=== PATIENT | male | born 1960 | race Caucasian/White ===

== ENCOUNTER 2016-08-08 10:43 | Emergency (ER) | payer OTHER ==
[~2016-08-08 10:43] MED LIST: ALLOPURINOL100 MG PO; ASPIRIN ADULT L81 MG PO; ATACAND8 MG PO; CARDIZEM C1 PO; CEFTIN500 MG PO; COUMADIN5 MG PO; FUROSEMIDE40 MG PO; LANTUS SOL100 UNITS/ SC; LASIX20 MG PO; LIPITOR10 MG PO; LOPRESSOR50 MG PO; LYRICA25 MG PO; MICRO-K 10 EQU10 MEQ PO; MIRAPEX0.25 MG PO; NORVASC2.5 MG PO; NOVOLOG PE100 UNITS/; NOVOLOG PE100 UNITS/ SC; PREDNISONE20 MG PO; VICODIN EQUIVAL1 TAB PO
--- NOTE | 2016-08-08 13:51 | ED ORDER SUMMARY ---
..... Patient: CHRIS HAMLIN OrderSheet [facility] VisitID: [id number] [place] [address] 55y, M Registration Date/Time: 08/08/2016 ORDER SHEET Weight: 99.7 kg (stated) Allergies: No Known Drug Allergy GENERAL ORDERS: CBC w Diff Urgent (12:11 08/08/2016 HBivens A.R.N.P.) (Ack 12:12 NHouse ER Tech1) (12:13 NHouse ER Tech1) BMP Urgent (12:11 08/08/2016 HBivens A.R.N.P.) (Ack 12:12 NHouse ER Tech1) (12:13 NHouse ER Tech1) Lactate, Serum Urgent (12:11 08/08/2016 HBivens A.R.N.P.) (Ack 12:12 NHouse ER Tech1) (12:41 SRoberts R.N.) MEDICATION ORDERS: IV FLUIDS: Toradol IV 30 mg (NOW) (12:10 08/08/2016 HBivens A.R.N.P.) (Ack 12:16 SRoberts R.N.) (12:39 SRoberts R.N.) Ceftriaxone IV 1 gm/50mL (NOW) (12:10 08/08/2016 HBivens A.R.N.P.) (Ack 12:16 SRoberts R.N.) (12:41 SRoberts R.N.) IV Saline Lock (12:08/08/2016 HBivens A.R.N.P.) (12:16 SRoberts R.N.) ORDER SHEET NOTES: [Electronically signed by Nesha Miller R.N. (14:45 08/08/2016)] [Electronically signed by Kanwal Kebede A.R.N.P. (14:51 08/08/2016)] [Electronically locked/signed by Nesha Miller R.N. (14:45 08/08/2016)]
--- NOTE | 2016-08-08 13:51 | ED CLINICAL REPORT ---
Clinical Report - Physicians/Mid Levels [facility] [address] [place] [address] 08/08/2016 10:43 Patient: CHRIS HAMLIN Time Seen: 12:04; initial patient contact, initial documentation, patient care assumed. Arrived- By private vehicle. Historian- patient. HISTORY OF PRESENT ILLNESS Chief Complaint: LESION. This started about 4 weeks ago or longer and is still present. Not itchy. It is described as painful and burning. It has been located on the right lower extremity and left lower extremity. (missed his wound care appt last week, nothing new going on, admits to not washing the wounds or doing any care himself, left bandages on for more than 2-3 days, is scheduled for leg angiogram this week, needs something for pain). Similar symptoms previously: Chronically, worse. Recent medical care: Not recently seen/assessed. REVIEW OF SYSTEMS No fever, difficulty breathing, chest pain, abdominal pain or diarrhea. No vomiting. All systems otherwise negative, except as recorded above. PAST HISTORY See nurses notes. PROBLEMS: Pleural Effusion. Congestive Heart Failure. COPD - Chronic Obstructive Pulmonary Disease. Anxiety Reaction. Atrial Fibrillation. Bursitis. Rheumatoid arteritis. Neuropathy. Medication Refill. Lifestyle / Substance Problems. Dental Caries. Dental Abscess. Immunizations. Gout. Hypertension. Diabetes Mellitus. --10:59 Nesha Miller RKathy. ADDITIONAL SURGERIES: Cataract Surgery. Right ankle surgery . --10:59 Nesha Miller RKathy. SOCIAL HISTORY Heavy tobacco smoker. Occasional alcohol use. History of drug use hx of substance abuse, pt laughed when I asked about drugs or if he shot up. No recent travel. Is a local resident. FAMILY HISTORY Negative. ADDITIONAL NOTES The nursing notes have been reviewed with agreement regarding the chief complaint, HPI, ROS, PMH and patient medications and allergies. PHYSICAL EXAM Vital Signs: 08/08/2016 10:53 BP: 138/103. HR: 98. RR: 20. O2 saturation: 98%. Temp: 97.8 F. Pain level now: 05/17. Have been reviewed as abnormal and appear to be correct. Hypertensive. Heart rate normal. Respiratory rate normal. Temperature normal. Oxygen saturation normal. Appearance: Alert. Oriented X3. No acute distress. Neck: Neck supple. CVS: Normal heart rate and rhythm. Heart sounds normal. Respiratory: No respiratory distress. Breath sounds normal. Chest nontender. Abdomen: Nontender. No organomegaly. Skin: Skin warm and dry. Abnormal skin color. No rash. Normal skin turgor. (open weeping wounds to B lower extremities, with erythema, swelling). Extremities: Normal external inspection. Extremities nontender. Neuro: Oriented X 3. No motor deficit. No sensory deficit. LABS, X-RAYS, AND EKG Laboratory Tests: CBC w Diff: (HUEY: 08/08/2016 11:25) ( [facility] 08/08/2016 13:29) Final results Test Result Flag Units (Reference) WHITE BLOOD COUNT 10.6 K/uL (4.5-11.5) RED BLOOD COUNT 6.43 *H M/uL (4.50-5.90) HEMOGLOBIN 16.0 gm/dL (13.5-17.5) HEMATOCRIT 52.2 % (41.0-53.0) MEAN CELL VOLUME 81 fL (80-100) MEAN CORPUSCULAR HGB 25 L pg (26-34) MEAN CORPUSCULAR HGB CONC 31 g/dL (31-37) RED CELL DISTRIBUTION WIDTH 18.2 H % (11.6-14.8) PLATELET COUNT 266 K/uL (150-400) NEUTROPHIL % 66.8 % (50-75) LYMPH % 21.5 L % (25-40) MONO % 10.8 % (3-14) EOSINOPHIL % 0.6 % (0-4) BASOPHIL % 0.3 % (0-2) Lactate, Serum: (HUEY: 08/08/2016 12:26) ( MsgRcvd 08/08/2016 12:52) Final results Test Result Flag Units (Reference) LACTIC ACID 1.8 mmol/L (0.4-2.0) BMP: (HUEY: 08/08/2016 11:25) ( MsgRcvd 08/08/2016 12:30) Final results Test Result Flag Units (Reference) GLUCOSE 126 H mg/dL (70-110) BUN 12 mg/dL (7-18) CREATININE 1.0 mg/dL (0.6-1.3) Estimated GFR >60 mL/min Estimated GFR- >60 mL/min Note: Persistent reduction over 3 months in eGFR<60 mL/min/1.73 m2 defines CKD. Patients with eGFR values>=60 mL/min/1.73 m2 may also have CKD if evidence ofpersistent proteinuria. Additional information may be foundat www.[email or web address].org. SODIUM 138 mmol/L (136-145) POTASSIUM 4.2 mmol/L (3.5-5.1) CHLORIDE 100 mmol/L (98-107) CARBON DIOXIDE 28 mmol/L (21-32) CALCIUM 9.6 mg/dL (8.5-10.1) . PROGRESS AND PROCEDURES Course of Care: 1346. pt admitting he has been depressed, tired of the leg issues, it started back around , doesn't want to wait til Thur for angiogram, wants it done today or to cut his leg off. Patient counseled in person regarding the patient's stable condition, test results and diagnosis. 13:46. Differential Diagnosis: Other possible considerations: chronic leg ulcers, sepsis. Above considerations are based on history, physical exam and laboratory data. Differential diagnosis was discussed with patient. Disposition: Discharged home in good and improved condition (13:51). Condition: good and stable. CLINICAL IMPRESSION (B Chronic Leg Ulcers/wounds). INSTRUCTIONS Warnings: GENERAL WARNINGS: Return or contact your physician immediately if your condition worsens or changes unexpectedly, if not improving as expected, or if other problems arise. Specifically return if problem worsens. Prescription Medications: Bactrim DS 800 mg / 160 mg: Take 1 tablet orally every 12 hours for 7 days. Dispense fourteen (14). No refills. Substitution is permissible. Follow-up: Follow up with your doctor as scheduled even if well. Summary of care provided to patient. Screening today revealed the patient's blood pressure to be in the hypertensive range. The patient should follow up with a primary care provider for blood pressure management. Understanding of the discharge instructions verbalized by patient. (Electronically signed by Kanwal Kebede A.R.N.P. 08/08/2016 14:51)
--- NOTE | 2016-08-08 13:51 | ED ORDER SUMMARY ---
..... Patient: CHRIS HAMLIN OrderSheet [facility] VisitID: [id number] [place] [address] 55y, M Registration Date/Time: 08/08/2016 ORDER SHEET Weight: 99.7 kg (stated) Allergies: No Known Drug Allergy GENERAL ORDERS: CBC w Diff Urgent (12:11 08/08/2016 HBivens A.R.N.P.) (Ack 12:12 NHouse ER Tech1) (12:13 NHouse ER Tech1) BMP Urgent (12:11 08/08/2016 HBivens A.R.N.P.) (Ack 12:12 NHouse ER Tech1) (12:13 NHouse ER Tech1) Lactate, Serum Urgent (12:11 08/08/2016 HBivens A.R.N.P.) (Ack 12:12 NHouse ER Tech1) (12:41 SRoberts R.N.) MEDICATION ORDERS: IV FLUIDS: Toradol IV 30 mg (NOW) (12:10 08/08/2016 HBivens A.R.N.P.) (Ack 12:16 SRoberts R.N.) (12:39 SRoberts R.N.) Ceftriaxone IV 1 gm/50mL (NOW) (12:10 08/08/2016 HBivens A.R.N.P.) (Ack 12:16 SRoberts R.N.) (12:41 SRoberts R.N.) IV Saline Lock (12:08/08/2016 HBivens A.R.N.P.) (12:16 SRoberts R.N.) ORDER SHEET NOTES: [Electronically signed by Nesha Miller R.N. (14:45 08/08/2016)] [Electronically signed by Kanwal Kebede A.R.N.P. (14:51 08/08/2016)] [Electronically locked/signed by Nesha Miller R.N. (14:45 08/08/2016)]
--- NOTE | 2016-08-08 13:51 | ED NURSING NOTES ---
Clinical Report - Nurses [facility] [address] [place] [address] 08/08/2016 10:43 [id number] Triage time 10:53. Acuity: LEVEL 3. Chief Complaint: RIGHT LOWER EXTREMITY PAIN, SWELLING and REDNESS. Location of symptoms- ("stingy pain in both legs. I'm scheduled for an angiogram). LEFT LOWER EXTREMITY PAIN, SWELLING and REDNESS. Alert. No acute distress. SHAKA COMA SCORE: Shaka Coma Scale: 15- eyes open spontaneously (4); best verbal response- oriented x 4 (5); best motor response- obeys commands (6). --11:03 Nesha Miller R.N. 10:53 08/08/16. BP: 138/103. HR: 98. RR: 20. O2 saturation: 98%. Temp: 97.8 F. Pain level now: 05/17. Additional comments: last pain med yesterday . --11:03 Nesha Miller R.N. Weight: 99.7 kg stated. Height/Length: 72 inches Per Patient. BMI: 29.8. --10:56 Nesha Miller R.N. Medications Amlodipine besylate 10mg . Atorvastatin 20mg tab. Chantix. Diazepam 10mg 1 daily. Hydrocodon 7.5 -325 take 1 tab every 4 hrs as needed. Lantus Subcutaneous 30 units, at bedtime. Lasix Oral 40 mg, 2x a day. Lyrica 100mg 1- three times daily. Metoprolol 50mg 1- twcie daily. --11: Nesha Miller R.N. Medication/allergy information source: the patient. --11:03 Nesha Miller R.N. Allergies No Known Drug Allergy. --11:01 Nesha Miller R.N. History Arrived by EMS. Historian: patient. No injury occurred. This occurred (4 weeks, going to the wound care center. Missed last week. Pain in both lower legs.). Provoking / relieving factors: worsened by movement; relieved by standing, walking, lying down, remaining still, OTC analgesics and Rx meds. The patient has had swelling and redness. Treatment BUSINESS LINE MANAGER: None. PAST MEDICAL HX: Tetanus status: unknown. SOCIAL HX: Smoker- current status unknown. No alcohol use or drug use. FALL RISK ASSESSMENT: Fall risk assessment completed. No fall risk identified. NUTRITIONAL RISK ASSESSMENT: The nutritional risk assessment revealed no deficiencies. FUNCTIONAL ASSESSMENT: Functional assessment: no impairments noted. LEARNING NEEDS ASSESSMENT: The learning needs assessment revealed no barriers. SKIN INTEGRITY ASSESSMENT: Skin integrity risk assessment completed. No skin integrity risk identified. --11:03 Nesha Miller R.N. PROBLEMS: Pleural Effusion. Congestive Heart Failure. COPD - Chronic Obstructive Pulmonary Disease. Anxiety Reaction. Atrial Fibrillation. Bursitis. Rheumatoid arteritis. Neuropathy. Medication Refill. Lifestyle / Substance Problems. Dental Caries. Dental Abscess. Immunizations. Gout. Hypertension. Diabetes Mellitus. --10:59 Nesha Miller R.N. ADDITIONAL SURGERIES: Cataract Surgery. Right ankle surgery . --10:59 Nesha Miller R.N. Interventions ID band on patient. To room. --11:03 Nesha Miller R.N. PHYSICAL ASSESSMENT To room via stretcher. Patient gowned. GENERAL / NEURO / PSYCH: Appears in pain and anxious. EXTREMITIES: Limited ROM present. 3+ pitting edema of the right lower extremity involving the foot, ankle and lower leg; 1+ pitting edema of the left lower extremity involving the foot, ankle and lower leg. Right knee: tenderness and erythema. Right leg: tenderness and erythema. Right ankle: tenderness and erythema. Right foot: tenderness and erythema. Left leg: tenderness and erythema. Left ankle: tenderness and erythema. Left foot: tenderness and erythema. SKIN: Skin is warm and dry. ( Lower legs scally, rt is worse. Rt heel with open sore, DM.). --11:05 Nesha Miller R.N. NURSING PROGRESS NOTES Extremity elevated. Patient gowned. Two patient identifiers checked. Call light placed in reach. Side rails up x 2. Bed placed in lowest position. Brakes of bed on. Patient ready for evaluation. --11:05 Nesha Miller R.N. 11:05 08/08/16. BP: 143/110. HR: 100. RR: 20. O2 saturation: 99%. --11:06 Nesha Miller R.N. ( photos taken of leg wounds.). --12:03 Betty Metzger ER Tech1 11:51 08/08/2016 Site #1 started via IV in the left antecubital space with an 20g angiocath; one attempt. Blood drawn: rainbow set. Labeled in the presence of the patient and sent to the lab. Saline lock flushed. --12:16 Nesha Miller R.N. 12:08 08/08/2016 Toradol IVP 30 mg given over 1 minute(s) via site #1. Allergies verified and confirmed 5 rights. IV patency established. IV site checked: no pain, redness, or swelling. IV flushed thoroughly pre- and post-medication administration. IVP given by RN. --12:39 Nesha Miller R.N. 12:10 08/08/2016 Started 1 gm of Ceftriaxone IVPB in bag #1 50 mL; at 100 mL/hr over 20 minute(s) via site #1; Allergies verified and confirmed 5 rights. IV patency established. IV site checked: no pain, redness, or swelling. IV flushed thoroughly pre- and post-medication administration. Completed per protocol. --12:41 Nesha Miller R.N. 12:41 08/08/2016 Ceftriaxone IVPB Discontinued: bag #1 infused. Total amount infused: 50 mL. IV patency established. IV site checked: no pain, redness, or swelling. IV flushed thoroughly. --12:41 Nesha Miller R.N. ( provided patient with sandwich and apple juice). --13:44 Mila Austin Tech1 ( Patient told he's discharged. He is on the phone calling his brother to come pick him up.). --14:12 Nesha Miller R.N. DISPOSITION / DISCHARGE Condition at departure: improved. No learning barriers present. Discharge instructions provided and reviewed with the patient. Reviewed medication(s) side effects, precautions, dosing and course information. Prescription(s) given to the patient. Patient verbalized understanding. Written instructions provided in Peruvian. The patient was discharged home and accompanied by family. He left the Emergency Department in a wheelchair and via private vehicle. Family member driving. ( Patient stood and transferred from bed to w/c). Medication list reviewed and validated. --14:30 Nesha Miller R.N. 14:17 08/08/16. BP: 133/87. HR: 78. RR: 18. O2 saturation: 97% on room air. Temp: deferred. Pain level now: 05/17. 13:07 08/08/16. BP: 154/75. HR: 89. RR: 20. O2 saturation: 98% on room air. 11:05 08/08/16. BP: 143/110. HR: 100. RR: 20. O2 saturation: 99%. 10:53 08/08/16. BP: 138/103. HR: 98. RR: 20. O2 saturation: 98%. Temp: 97.8 F. Pain level now: 05/17. Additional comments: last pain med yesterday . --14:30 Nesha Miller R.N. Locked/Released at 08/08/2016 14:45 by Nesha Miller R.N.
--- NOTE | 2016-08-08 14:51 | ED DISCHARGE INSTRUCTIONS ---
Patient: CHRIS HAMLIN General Instructions [facility] VisitID: [id number] [place] [address] 55y, M Registration Date/Time: 08/08/2016 (B Chronic Leg Ulcers/wounds). INSTRUCTIONS Warnings: GENERAL WARNINGS: Return or contact your physician immediately if your condition worsens or changes unexpectedly, if not improving as expected, or if other problems arise. Specifically return if problem worsens. Prescription Medications: Bactrim DS 800 mg / 160 mg: Take 1 tablet orally every 12 hours for 7 days. Dispense fourteen (14). No refills. Substitution is permissible. Follow-up: Follow up with your doctor as scheduled even if well. Summary of care provided to patient. Screening today revealed the patient's blood pressure to be in the hypertensive range. The patient should follow up with a primary care provider for blood pressure management. Understanding of the discharge instructions verbalized by patient. ADDITIONAL INFORMATION Sulfamethoxazole, Trimethoprim Oral tablet What is this medicine? SULFAMETHOXAZOLE; TRIMETHOPRIM or SMX-TMP (suhl fuh meth OK ale zohl; trye METH oh prim) is a combination of a sulfonamide antibiotic and a second antibiotic, trimethoprim. It is used to treat or prevent certain kinds of bacterial infections. It will not work for colds, flu, or other viral infections. How should I use this medicine? Take this medicine by mouth with a full glass of water. Follow the directions on the prescription label. Take your medicine at regular intervals. Do not take it more often than directed. Do not skip doses or stop your medicine early. Talk to your nitrogen operator regarding the use of this medicine in children. Special care may be needed. This medicine has been used in children as young as 2 months of age. What side effects may I notice from receiving this medicine? Side effects that you should report to your doctor or health career guidance technician as soon as possible: allergic reactions like skin rash or hives, swelling of the face, lips, or tongue breathing problems fever or chills, sore throat irregular heartbeat, chest pain joint or muscle pain pain or difficulty passing urine red pinpoint spots on skin redness, blistering, peeling or loosening of the skin, including inside the mouth unusual bleeding or bruising unusually weak or tired yellowing of the eyes or skin Side effects that usually do not require medical attention (report to your doctor or health career guidance technician if they continue or are bothersome): diarrhea dizziness headache loss of appetite nausea, vomiting nervousness What may interact with this medicine? Do not take this medicine with any of the following medications: aminobenzoate potassium dofetilide metronidazole This medicine may also interact with the following medications: COURTNEY inhibitors like benazepril, enalapril, lisinopril, and ramipril cyclosporine digoxin diuretics indomethacin medicines for diabetes methenamine methotrexate phenytoin potassium supplements pyrimethamine sulfinpyrazone tricyclic antidepressants warfarin What if I miss a dose? If you miss a dose, take it as soon as you can. If it is almost time for your next dose, take only that dose. Do not take double or extra doses. Where should I keep my medicine? Keep out of the reach of children. Store at room temperature between 20 to 25 degrees C (68 to 77 degrees F). Protect from light. Throw away any unused medicine after the expiration date. What should I tell my health care provider before I take this medicine? They need to know if you have any of these conditions: anemia asthma being treated with anticonvulsants if you frequently drink alcohol containing drinks kidney disease liver disease low level of folic acid or [id number] dehydrogenase poor nutrition or malabsorption porphyria severe allergies thyroid disorder an unusual or allergic reaction to sulfamethoxazole, trimethoprim, sulfa drugs, other medicines, foods, dyes, or preservatives or trying to get breast-feeding What should I watch for while using this medicine? Tell your doctor or health career guidance technician if your symptoms do not improve. Drink several glasses of water a day to reduce the risk of kidney problems. Do not treat diarrhea with over the counter products. Contact your doctor if you have diarrhea that lasts more than 2 days or if it is severe and watery. This medicine can make you more sensitive to the sun. Keep out of the sun. If you cannot avoid being in the sun, wear protective clothing and use a sunscreen. Do not use sun lamps or tanning beds/booths. You have been given the following additional information: Sulfamethoxazole, Trimethoprim Oral tablet (Electronically signed by Kanwal Kebede A.R.N.PFrancisco 08/08/2016 14:51)
--- NOTE | 2016-08-08 14:51 | ED DISCHARGE INSTRUCTIONS ---
Patient: CHRIS HAMLIN General Instructions VisitID: [id number] [place] [address] 55y, M Registration Date/Time: 08/08/2016 (B Chronic Leg Ulcers/wounds). INSTRUCTIONS Warnings: GENERAL WARNINGS: Return or contact your physician immediately if your condition worsens or changes unexpectedly, if not improving as expected, or if other problems arise. Specifically return if problem worsens. Prescription Medications: Bactrim DS 800 mg / 160 mg: Take 1 tablet orally every 12 hours for 7 days. Dispense fourteen (14). No refills. Substitution is permissible. Follow-up: Follow up with your doctor as scheduled even if well. Summary of care provided to patient. Screening today revealed the patient's blood pressure to be in the hypertensive range. The patient should follow up with a primary care provider for blood pressure management. Understanding of the discharge instructions verbalized by patient. ADDITIONAL INFORMATION Sulfamethoxazole, Trimethoprim Oral tablet What is this medicine? SULFAMETHOXAZOLE; TRIMETHOPRIM or SMX-TMP (suhl fuh meth OK ale zohl; trye METH oh prim) is a combination of a sulfonamide antibiotic and a second antibiotic, trimethoprim. It is used to treat or prevent certain kinds of bacterial infections. It will not work for colds, flu, or other viral infections. How should I use this medicine? Take this medicine by mouth with a full glass of water. Follow the directions on the prescription label. Take your medicine at regular intervals. Do not take it more often than directed. Do not skip doses or stop your medicine early. Talk to your senior loan officer regarding the use of this medicine in children. Special care may be needed. This medicine has been used in children as young as 2 months of age. What side effects may I notice from receiving this medicine? Side effects that you should report to your doctor or health acute care nursing assistant as soon as possible: allergic reactions like skin rash or hives, swelling of the face, lips, or tongue breathing problems fever or chills, sore throat irregular heartbeat, chest pain joint or muscle pain pain or difficulty passing urine red pinpoint spots on skin redness, blistering, peeling or loosening of the skin, including inside the mouth unusual bleeding or bruising unusually weak or tired yellowing of the eyes or skin Side effects that usually do not require medical attention (report to your doctor or health acute care nursing assistant if they continue or are bothersome): diarrhea dizziness headache loss of appetite nausea, vomiting nervousness What may interact with this medicine? Do not take this medicine with any of the following medications: aminobenzoate potassium dofetilide metronidazole This medicine may also interact with the following medications: COURTNEY inhibitors like benazepril, enalapril, lisinopril, and ramipril cyclosporine digoxin diuretics indomethacin medicines for diabetes methenamine methotrexate phenytoin potassium supplements pyrimethamine sulfinpyrazone tricyclic antidepressants warfarin What if I miss a dose? If you miss a dose, take it as soon as you can. If it is almost time for your next dose, take only that dose. Do not take double or extra doses. Where should I keep my medicine? Keep out of the reach of children. Store at room temperature between 20 to 25 degrees C (68 to 77 degrees F). Protect from light. Throw away any unused medicine after the expiration date. What should I tell my health care provider before I take this medicine? They need to know if you have any of these conditions: anemia asthma being treated with anticonvulsants if you frequently drink alcohol containing drinks kidney disease liver disease low level of folic acid or [id number] dehydrogenase poor nutrition or malabsorption porphyria severe allergies thyroid disorder an unusual or allergic reaction to sulfamethoxazole, trimethoprim, sulfa drugs, other medicines, foods, dyes, or preservatives or trying to get breast-feeding What should I watch for while using this medicine? Tell your doctor or health acute care nursing assistant if your symptoms do not improve. Drink several glasses of water a day to reduce the risk of kidney problems. Do not treat diarrhea with over the counter products. Contact your doctor if you have diarrhea that lasts more than 2 days or if it is severe and watery. This medicine can make you more sensitive to the sun. Keep out of the sun. If you cannot avoid being in the sun, wear protective clothing and use a sunscreen. Do not use sun lamps or tanning beds/booths. You have been given the following additional information: Sulfamethoxazole, Trimethoprim Oral tablet (Electronically signed by Kanwal Kebede A.R.N.PFrancisco 08/08/2016 14:51)
--- NOTE | 2016-08-08 14:51 | ED MAR SUMMARY ---
..... Medication Administration Record [facility] [address] [place] [address] Patient: CHRIS HAMLIN Visit ID: [id number] 55y, M Weight: 99.7 kg Height/Length: 72 in BMI: 29.8 ALLERGIES: No Known Drug Allergy Given 12:08 08/08/2016 Nesha Miller R.N. Medication Administered: TORADOL [IVP], Dose: 30 mg IVP over 1 minute(s), Site: #1 left AC. Medication Ordered: Toradol IV 30 mg (NOW). Start 12:10 08/08/2016 Nesha Miller R.N., Stop 12:41 08/08/2016 Nesha Miller R.N. Medication Administered: CEFTRIAXONE [IVPB], Dose: 1 gm IVPB over 20 minute(s), Rate: 100 mL/hr, Dispensed: 50 mL bag, Site: #1 left AC. Medication Ordered: Ceftriaxone IV 1 gm/50mL (NOW).
--- NOTE | 2016-08-08 14:51 | ED MED RECONCILIATION SUMMARY ---
Patient: CHRIS HAMLIN Medication Reconciliation Report [facility] VisitID: [id number] [address] [place] [address] 55y, M Registration Date/Time: 08/08/2016 Weight: 99.7 kg Height/Length: 72 in. BMI: 29.8 ALLERGIES: No Known Drug Allergy The patient's Home Medications are listed below: THE FOLLOWING MEDICATIONS NEED TO BE RECONCILED: Amlodipine besylate 10mg Atorvastatin 20mg tab Chantix Diazepam 10mg 1 daily Hydrocodon 7.5 -325 take 1 tab every 4 hrs as needed Lantus Subcutaneous 30 units, at bedtime Lasix Oral 40 mg, 2x a day Lyrica 100mg 1- three times daily Metoprolol 50mg 1- twcie daily The source(s) of the original Home Medication information: patient The following Medications were given to the patient in the Emergency Department: Toradol [IVP] IVP 30 mg, administered: 08/08/2016 12:08:00 PM Ceftriaxone [IVPB] IVPB bolus 0, then 1 gm 100 mL/hr, administered: 08/08/2016 12:10:00 PM The following Medications were prescribed to the patient: Bactrim DS 800 mg / 160 mg: Take 1 tablet orally every 12 hours for 7 days. Dispense fourteen (14). No refills. Substitution is permissible. -- Kanwal Kebede A.R.N.P.
--- NOTE | 2016-08-08 14:51 | ED MED RECONCILIATION SUMMARY ---
Patient: CHRIS HAMLIN Medication Reconciliation Report [facility] VisitID: [id number] [address] [place] [address] 55y, M Registration Date/Time: 08/08/2016 Weight: 99.7 kg Height/Length: 72 in. BMI: 29.8 ALLERGIES: No Known Drug Allergy The patient's Home Medications are listed below: THE FOLLOWING MEDICATIONS NEED TO BE RECONCILED: Amlodipine besylate 10mg Atorvastatin 20mg tab Chantix Diazepam 10mg 1 daily Hydrocodon 7.5 -325 take 1 tab every 4 hrs as needed Lantus Subcutaneous 30 units, at bedtime Lasix Oral 40 mg, 2x a day Lyrica 100mg 1- three times daily Metoprolol 50mg 1- twcie daily The source(s) of the original Home Medication information: patient The following Medications were given to the patient in the Emergency Department: Toradol [IVP] IVP 30 mg, administered: 08/08/2016 12:08:00 PM Ceftriaxone [IVPB] IVPB bolus 0, then 1 gm 100 mL/hr, administered: 08/08/2016 12:10:00 PM The following Medications were prescribed to the patient: Bactrim DS 800 mg / 160 mg: Take 1 tablet orally every 12 hours for 7 days. Dispense fourteen (14). No refills. Substitution is permissible. -- Kanwal Kebede A.R.N.P.
--- NOTE | 2016-08-08 14:51 | ED MAR SUMMARY ---
..... Medication Administration Record [facility] [address] [place] [address] Patient: CHRIS HAMLIN Visit ID: [id number] 55y, M Weight: 99.7 kg Height/Length: 72 in BMI: 29.8 ALLERGIES: No Known Drug Allergy Given 12:08 08/08/2016 Nesha Miller R.N. Medication Administered: TORADOL [IVP], Dose: 30 mg IVP over 1 minute(s), Site: #1 left AC. Medication Ordered: Toradol IV 30 mg (NOW). Start 12:10 08/08/2016 Nesha Miller R.N., Stop 12:41 08/08/2016 Nesha Miller R.N. Medication Administered: CEFTRIAXONE [IVPB], Dose: 1 gm IVPB over 20 minute(s), Rate: 100 mL/hr, Dispensed: 50 mL bag, Site: #1 left AC. Medication Ordered: Ceftriaxone IV 1 gm/50mL (NOW).
== END 2016-08-08 14:35 | disposition home or self-care (01) ==
LOC: ED SRH 10:43
DX: L97.919 Non-pressure chronic ulcer of unspecified part of right lower leg with unspecified severity (principal); L97.929 Non-pressure chronic ulcer of unspecified part of left lower leg with unspecified severity; I10 Essential (primary) hypertension; E11.9 Type 2 diabetes mellitus without complications; J44.9 Chronic obstructive pulmonary disease, unspecified; I50.9 Heart failure, unspecified; F17.210 Nicotine dependence, cigarettes, uncomplicated; Z79.891 Long term (current) use of opiate analgesic; Z79.4 Long term (current) use of insulin; Z79.899 Other long term (current) drug therapy
CPT/HCPCS: 90047; 92031; 95059

== ENCOUNTER 2016-08-20 11:03 | Outpatient (CLI) | payer OTHER ==
--- NOTE | 2016-08-20 11:44 | DIAGNOSTIC IMAGING REPORT ---
PROCEDURE: XR FOOT 3 VIEWS - RIGHT INDICATION: FOCUS ON R HEEL AREA WHERE THERE IS A NEW PRESSURE INJURY TECHNIQUE: Three views. COMPARISON: None. FINDINGS: Osseous structures and joint spaces are normal. Screws in place repairing a previous bi malleolar fracture. IMPRESSION: 1. Negative right foot.
== END 2016-08-20 23:00 ==
LOC: XR SRH 11:03
DX: L89.619 Pressure ulcer of right heel, unspecified stage (principal)

== ENCOUNTER 2016-11-22 20:26 | Inpatient (IN) | payer OTHER ==
[~2016-11-22] VITALS: Ht 182.9 cm; Wt 105.7 kg
--- NOTE | 2016-11-22 22:27 | DIAGNOSTIC IMAGING REPORT ---
PROCEDURE: XR CHEST 1 VIEW INDICATION: SHORTNESS OF BREATH TECHNIQUE: Portable AP view (2130 hours). COMPARISON: Compared to chest x-rays (06/09/2016, 04/10/2016), CTA thorax (04/10/2016), and ultrasound thoracentesis (06/09/2016). FINDINGS: Moderate right pleural effusion with right basilar atelectasis/consolidation. Left lung is clear. Mild cardiomegaly and pulmonary vascular congestion. Mediastinum is normal. Thorax is normal. IMPRESSION: 1. Moderate right pleural effusion with right basilar atelectasis/consolidation. Consider right basilar pneumonia. 2. Mild cardiomegaly and pulmonary vascular congestion. Consider mild congestive heart failure.
[2016-11-23] VITALS (17 sets, daily range): BP systolic 118–149; BP diastolic 74–116
--- NOTE | 2016-11-23 00:11 | DIAGNOSTIC IMAGING REPORT ---
PROCEDURE: CTA THORAX WITH CONTRAST INDICATION: SHORTNESS OF BREATH TECHNIQUE: 100 ml of Isovue 370 was injected intravenously and axial images were obtained of the entire thorax with 3D sagittal and coronal MIP reconstructions. COMPARISON: Compared to chest x-ray earlier today (11/22/2016) and CT bone arteriogram (04/10/2016). FINDINGS: Moderate to large right pleural effusion with right basilar compressive atelectasis. Minimal left pleural effusion. Left lung is clear. Mild respiratory motion partially limits evaluation of pulmonary vessels. Allowing for this, no large central pulmonary emboli are identified (subtle peripheral emboli may be difficult to exclude, although there is nothing to suggest embolus). Mild cardiomegaly. Mediastinum is normal. Thorax is normal. IMPRESSION: 1. Moderate to large chronic right pleural effusion with right basilar compressive atelectasis/consolidation. 2. Small left pleural effusion. 3. Partially limited evaluation of pulmonary vessels due to respiratory motion, but no evidence of pulmonary embolus. 4. Mild cardiomegaly. Consider mild/chronic congestive heart failure. 5. Findings called to emergency for Dr. Feroz Mcdaniels. All CT scans at this facility use dose modulation, iterative reconstruction, and/or weight-based dosing when appropriate to reduce radiation dose to as low as reasonably achievable.
--- NOTE | 2016-11-23 01:27 | ED CLINICAL REPORT ---
Clinical Report - Physicians/Mid Levels [facility] [address] [place] [address] 11/22/2016 20:28 Patient: CHRIS HAMLIN Time Seen: 2044. Arrived- By private vehicle. Historian- patient. HISTORY OF PRESENT ILLNESS Chief Complaint: DYSPNEA. This started past few days and is still present. It was abrupt in onset and has been constant but is not gone now. The dyspnea is severe and is worsened by exertion, is improved by rest and is improved with sitting upright. The patient has had foot swelling and orthopnea. No anxiety. (Diagnosed with a fib with RVR, CHF, and "borderline" COPD. States he was changed to coreg and metoprolol for the blood pressure and the a fib.). Similar symptoms previously: Recent medical care: Not recently seen/assessed. REVIEW OF SYSTEMS All systems otherwise negative, except as recorded above. PAST HISTORY See nurses notes. Problems: Pleural Effusion. Congestive Heart Failure. COPD - Chronic Obstructive Pulmonary Disease. Anxiety Reaction. Atrial Fibrillation. Bursitis. Rheumatoid arteritis. Neuropathy. Medication Refill. Lifestyle / Substance Problems. Dental Caries. Dental Abscess. Gout. Diabetes Mellitus. Additional Surgeries: Cataract Surgery. Right ankle surgery . Medications: Coumadin Oral. Amlodipine besylate 10mg . Atorvastatin 20mg tab. Hydrocodon 7.5 -325 take 1 tab every 4 hrs as needed. Lantus Subcutaneous 30 units, at bedtime. Lasix Oral 40 mg, 2x a day. Lyrica 100mg 1- three times daily. Allergies: No Known Drug Allergy. SOCIAL HISTORY Smoker- current status unknown. Occasional alcohol use. No drug use. No recent travel. Is a local resident. ADDITIONAL NOTES The nursing notes have been reviewed. PHYSICAL EXAM Vital Signs: 11/22/2016 20:35 BP: 148/130. HR: 126. RR: 24. O2 saturation: 96%. Temp: 97.7 F. Pain level now: 5/10. Hypertensive. Oxygen saturation normal. Appearance: Alert. Patient in mild distress. Eyes: Pupils equal, round and reactive to light. Eyes normal inspection. ENT: Ears normal. Nose normal. Pharynx normal. Uvula midline. Neck: Normal inspection. No jugular venous distention. Neck supple. CVS: Tachycardia. Abnormal rhythm. Heart sounds normal. Pulses normal. Respiratory: Mild respiratory distress with accessory muscle use. Expiratory mild bilateral wheezes in the bases. No stridor, rales or rhonchi. Abdomen: Soft and nontender. No organomegaly. Back: Normal inspection. Skin: Skin warm and dry. Normal skin color. No rash. Normal skin turgor. Extremities: Bilateral severe 3+ pitting edema of the lower extremities involving both feet, both ankles and both lower legs. Neuro: Oriented X 3. No motor deficit. No sensory deficit. LABS, X-RAYS, AND EKG EKG: Rate: 141. Atrial fibrillation. Q waves in lead V1 and V2. Right axis deviation. Changes present when compared to prior EKG. (June 09 and 2015). The study has been independently viewed by me. Chest X-ray: (IMPRESSION: 1. Moderate right pleural effusion with right basilar atelectasis/consolidation. Consider right basilar pneumonia. 2. Mild cardiomegaly and pulmonary vascular congestion. Consider mild congestive heart failure.). The X-rays were interpreted by the radiologist and contemporaneously by me. Chest CT: (IMPRESSION: 1. Moderate to large chronic right pleural effusion with right basilar compressive atelectasis/consolidation. 2. Small left pleural effusion. 3. Partially limited evaluation of pulmonary vessels due to respiratory motion, but no evidence of pulmonary embolus. 4. Mild cardiomegaly. Consider mild/chronic congestive heart failure.). The study was interpreted by the radiologist and contemporaneously by me. Laboratory Tests: Urine Drug Screen: (HUEY: 11/23/2016 00:01) ( MsgRcvd 11/23/2016 01:43) Final results Test Result Flag Units (Reference) AMPHETAMINE/METHAMPHETAMINE NEGATIVE (NEGATIVE) BARBITURATE NEGATIVE (NEGATIVE) BENZODIAZEPINE NEGATIVE (NEGATIVE) CANNABINOID NEGATIVE (NEGATIVE) COCAINE NEGATIVE (NEGATIVE) ECSTASY NEGATIVE (NEGATIVE) METHADONE NEGATIVE (NEGATIVE) OPIATE POSITIVE H (NEGATIVE) The urine drug screen is a qualitative screening test fordrug overdose and abuse. All screen results should beconsidered as presumptive.Drugs screened for are as follows:BenzodiazepinesCocaineAmphetamines/MetamphetaminesTHC (Tetrahydrocannabinol)OpiatesBarbituratesEcstasyMethadonePositive results are unconfirmed. For confirmation, notifythe lab for the specimen to be sent to the reference lab.All confirmations must be performed by a differentmethodology.The ingestion of natural herbal and plant productscontaining Ephedra/Ephedra metabolites can produce in urineone or more substances capable of cross reacting withamphetamine/methamphetamine immunoassays. These testsprovide a preliminary result only. A more specificalternative chemical method must be used to obtain aconfirmed analytical result. [id number]: (HUEY: 11/23/2016 00:38) ( MsgRcvd 11/23/2016 01:12) Final results Test Result Flag Units (Reference) PROCALCITONIN <0.5 ng/mL (0-0.5) PCT Concentration: Interpretation : Risk/option for action PCT <=0.5 ng/mL : Systemic : Low risk forinfection(sepsis): progression to severeis not likely. : systemic infection.Local bacterial : CAUTION-PCT levelsinfection is : below 0.5 ng/mL do notpossible. : exclude an infection,because localizedinfections (withoutsystemic signs) may beassociated with suchlow levels. If PCT ismeasured very earlyafter a bacterialchallenge (usually <6hours), these valuesmay still be low. Inthis case PCT shouldbe re-assessed 6-24hours later. PCT >0.5 and : Systemic infection: Moderate risk for<= 2 ng/mL : (sepsis) is : progression to severepossible, but : systemic infection.other conditions : The patient should beare known to : closely monitoredelevate PCT. : both clinically andby re-assessing PCTwithin 6-24 hours. PCT > 2 ng/mL : Systemic infection: High risk for(sepsis) is likely: progression to severeunless other : systemic infection.causes are known. : PCT >= 10 ng/mL : Important systemic: High likelihood ofinflammatory : severe sepsis orresponse, almost : septic shock.exclusively due to:severe bacterial :sepsis or septic :shock. : ABG: (HUEY: 11/23/2016 00:46) ( MsgRcvd 11/23/2016 00:58) Final results Test Result Flag Units (Reference) FIO2 100 % (20-101) ABG MODE OF DELIVERY NRB MODIFIED JOI TEST POSITIVE? NO LITERS PER MIN. 15 L/MIN (0-20) ARTERIAL BLOOD GAS SITE RR ARTERIAL BLOOD GAS pH 7.39 (7.35-7.45) ABG PCO2 43.0 mmHg (35-45) ABG PO2 170.0 H mmHg (80.0-100.0) ABG BASE EXCESS 0.8 H mmol/L (-6.0--6.0) ABG HCO3 25.9 mmol/L (20.0-26.0) ABG TCO2 27.3 mmol/L (24.0-30.0) ABG [id number] 492.4 H mmHg (7.0-14.0) *NOTE: Normal rangeis based on aFIO2 of 21% ABG SAT O2 99.9 % (95.1-100.0) ABG TOTAL HEMOGLOBIN 13.6 L g/dL (14.0-18.0) ABG O2 HEMOGLOBIN 97.1 % (95.0-100.0) ABG CARBOXYHEMOGLOBIN 2.8 H % (0.5-1.5) ABG METHEMOGLOBIN 0.0 L % (0.4-1.5) ABG RHEMOGLOBIN 0.1 % COMMENTS 15LNRB UA-Culture if indicated: (HUEY: 11/22/2016 00:05) ( [facility] 11/23/2016 00:30) Final results Test Result Flag Units (Reference) URINE COLOR SULTANA URINE APPEARANCE CLEAR URINE GLUCOSE NEGATIVE (NEGATIVE) URINE BILIRUBIN NEGATIVE (NEGATIVE) URINE KETONE NEGATIVE (NEGATIVE) URINE SPECIFIC GRAVITY 1.020 (1.010-1.030) URINE PH 5.5 (5.0-8.0) URINE PROTEIN 2+ (NEGATIVE) URINE UROBILINOGEN 1.0 EU/dL (0.2-1.0) URINE NITRITE NEGATIVE (NEGATIVE) URINE BLOOD 1+ (NEGATIVE) URINE LEUK ESTERASE NEGATIVE (NEGATIVE) URINE RBC 3-5 rbc/hpf (0-1) URINE WBC 0-1 wbc/hpf (0-1) URINE EPITHELIAL CELLS RARE EPI/hpf (0-5) URINE BACTERIA TRACE (<1+) (NONE SEEN) URINE COMMENT CULT NOT INDICATED 15-20 HYALINE CASTURINE CULTURES ARE SET-UP BASED ON THE FOLLOWING CRITERIA:POSITIVE NITRITEPOSITIVE LEUKOCYTE ESTERASEGREATER THAN 10 WHITE BLOOD CELLSMODERATE (2+) OR GREATER BACTERIA CBC w Diff: (HUEY: 11/22/2016 20:45) ( [facility] 11/22/2016 21:07) Final results Test Result Flag Units (Reference) WHITE BLOOD COUNT 9.8 K/uL (4.5-11.5) RED BLOOD COUNT 5.02 M/uL (4.50-5.90) HEMOGLOBIN 13.6 gm/dL (13.5-17.5) HEMATOCRIT 42.6 % (41.0-53.0) MEAN CELL VOLUME 85 fL (80-100) MEAN CORPUSCULAR HGB 27 pg (26-34) MEAN CORPUSCULAR HGB CONC 32 g/dL (31-37) RED CELL DISTRIBUTION WIDTH 18.7 H % (11.6-14.8) PLATELET COUNT 159 K/uL (150-400) NEUTROPHIL % 59.1 % (50-75) LYMPH % 27.6 % (25-40) MONO % 11.2 % (3-14) EOSINOPHIL % 1.0 % (0-4) BASOPHIL % 1.1 % (0-2) PT with INR: (HUEY: 11/22/2016 20:45) ( [facility] 11/22/2016 21:16) Final results Test Result Flag Units (Reference) INR 1.4 H (0.8-1.2) Low Intensity Therapy: INR 1.5-2.0 PT range 18.5-23.1Mod.Intensity Therapy: INR 2.0-3.0 PT range 23.1-31.5High Intensity Therapy: INR 2.5-3.5 PT range 27.4-35.5High Intensity Therapy 2: INR 3.0-4.0 PT range 31.5-39.3 D-DIMER QUANTITATIVE 2.69 H ug/mLFEU (0.27-0.52) The primary value of this quantitative assay relates toits negative predictive value (i.e. exclusion) of pulmonaryembolism/deep vein thrombosis/DIC.Elevated levels of d-dimer may also occur with:, age, cancer, inflammation, liver disease,post-op, infection, hematoma, coronary disease, peripheralarteriopathy, bleeding disorders and thrombolytic treatment.Results should be correlated with other clinical andradiological data.Testing Methodology: Latex Immunoassay BNP: (HUEY: 11/22/2016 20:45) ( [facility] 11/22/2016 21:30) Final results Test Result Flag Units (Reference) B-TYPE NATRIURETIC PEPTIDE 1290 H pg/ml (5-100) CMP: (HUEY: 11/22/2016 20:45) ( [facility]29) Final results Test Result Flag Units (Reference) GLUCOSE 98 mg/dL (70-110) BUN 24 H mg/dL (7-18) CREATININE 1.1 mg/dL (0.6-1.3) Estimated GFR >60 mL/min Estimated GFR- >60 mL/min Note: Persistent reduction over 3 months in eGFR<60 mL/min/1.73 m2 defines CKD. Patients with eGFR values>=60 mL/min/1.73 m2 may also have CKD if evidence ofpersistent proteinuria. Additional information may be foundat www.kidney.org. SODIUM 142 mmol/L (136-145) POTASSIUM 4.0 mmol/L (3.5-5.1) CHLORIDE 104 mmol/L (98-107) CARBON DIOXIDE 28 mmol/L (21-32) CALCIUM 9.5 mg/dL (8.5-10.1) TOTAL PROTEIN 7.8 g/dL (6.4-8.2) ALBUMIN 3.1 L g/dL (3.3-5.0) BILIRUBIN, TOTAL 0.9 mg/dL (0.0-1.0) ALKALINE PHOSPHATASE 220 H U/L (46-116) AST (SGOT) 30 U/L (15-37) ALT (SGPT) 34 U/L (12-78) TROPONIN I <0.05 ng/mL (0.00-1.5) TROPONIN REFERENCE RANGE:<0.1 NEGATIVE0.1-1.5 INDETERMINANT>1.5 POSITIVE . PROGRESS AND PROCEDURES Discussed case with hospitalist, (Agustin - he saw the patient in the ER). Reviewed test results and need for additional work-up. Agreed upon treatment plan, need for patient follow-up and decision to admit. Consult obtained from cardiology. Dr. Santana. Case discussed. Phone consult only. Patient/family counseled. Old medical records reviewed. Disposition: Admitted. CLINICAL IMPRESSION Atrial fibrillation with uncontrolled rate. Congestive heart failure. Abnormal tests: (subtherapeutic INR). Diabetes. diabetic foot ulcers. (Electronically signed by Feroz Mcdaniels MD 11/23/2016 21:54)
--- NOTE | 2016-11-23 01:27 | ED ORDER SUMMARY ---
..... Patient: CHRIS HAMLIN N OrderSheet [facility] VisitID: [id number] [place] [address] 56y, M Registration Date/Time: 11/22/2016 ORDER SHEET Weight: 99.7 kg (stated) Allergies: No Known Drug Allergy GENERAL ORDERS: Chest 1V Urgent (20:59 11/22/2016 Sasha Calderon) (Ack 21:03 LMuller) (21:27 LMuller) Replanter (Continuous) (SOB) (20:59 11/22/2016 Sasha Calderon) (21:01 EInderbitzen R.N.) CBC w Diff Urgent (21:00 11/22/2016 Sasha Calderon) (Sent 21:02 EInderbitzen R.N.) (Ack 21:03 LMuller) (21:03 EInderbitzen R.N.) CMP Urgent (21:00 11/22/2016 Sasha Calderon) (Ack 21:03 LMuller) (21:03 EInderbitzen R.N.) UA-Culture if indicated Urgent (21:00 11/22/2016 Sasha Calderon) (Ack 21:03 LMuller) (1:10 EInderbitzen R.N.) PT with INR Urgent (21:00 11/22/2016 Sasha Calderon) (Ack 21:03 LMuller) (21:03 EInderbitzen R.N.) Troponin-I Urgent (21:00 11/22/2016 Sasha Calderon) (Ack 21:03 LMuller) (21:03 EInderbitzen R.N.) D-Dimer Urgent (21:00 11/22/2016 Sasha Calderon) (Ack 21:03 LMuller) (21:03 EInderbitzen R.N.) BNP Urgent (21:00 11/22/2016 Sasha Calderon) (Ack 21:03 LMuller) (21:03 EInderbitzen R.N.) Pulse oximeter (21:00 11/22/2016 Sasha Calderon) (21:01 EInderbitzen R.N.) Oxygen (2 L/min) (NC) (21:00 11/22/2016 Sasha Calderon) (21:01 EInderbitzen R.N.) EKG - ER Stat (21:00 11/22/2016 Sasha Calderon) (21:01 EInderbitzen R.N.) (Ack 21:03 LMuller) CTA Thorax w Cont (Yes) (N/A) Urgent (21:21 11/22/2016 Sasha Calderon) (Ack 21:27 LMuller) (23:38 LMuller) Blood Culture (No) (N/A) Urgent (00:38 11/23/2016 Shimon RODRÍGUEZ) (Ack 0:41 LMuller) (1:10 EInderbitzen R.N.) PCT (Procalcitonin) Urgent (00:38 11/23/2016 Shimon RODRÍGUEZ) (0:41 LMuller) ABG (G) Urgent (00:46 11/23/2016 LMuller per protocol) (Ack 0:50 LMuller) (1:10 EInderbitzen R.N.) Urine Drug Screen Urgent (01:25 11/23/2016 Shimon RODRÍGUEZ) (1:27 EInderbitzen R.N.) MEDICATION ORDERS: Lovenox Subcut 1 mg/kg (HIGH ALERT MEDICATION, NOW) (00:27 11/23/2016 Shimon RODRÍGUEZ) (1:02 EInderbitzen R.N.) Metoprolol PO 25 mg (HIGH ALERT MEDICATION, NOW) (01:07 11/23/2016 Shimon RODRÍGUEZ) (1:13 EInderbitzen R.N.) IV FLUIDS: Metoprolol IV 5 mg (HIGH ALERT MEDICATION, NOW) (21:00 11/22/2016 Sasha Calderon) (Ack 21:04 EInderbitzen R.N.) (21:07 EInderbitzen R.N.) IV Saline Lock (21:11/22/2016 Sasha Calderon) (21:04 EInderbitzen R.N.) Lasix IV 40 mg (NOW) (00:28 11/23/2016 Shimon RODRÍGUEZ) (1:02 EInderbitzen R.N.) Diltiazem IV 20 mg (HIGH ALERT MEDICATION, NOW) (00:29 11/23/2016 Shimon RODRÍGUEZ) (0:55 EInderbitzen R.N.) Ativan IV 0.5 mg (HIGH ALERT MEDICATION, NOW) (00:39 11/23/2016 Shimon RODRÍGUEZ) (1:03 EInderbitzen R.N.) Diltiazem Drip IV : initial bolus 0 mg, then 5 mg/hr for 4h (HIGH ALERT MEDICATION, NOW, TITRATE); Urgent (00:57 11/23/2016 Shimon RODRÍGUEZ) (1:03 EInderbitzen R.N.) ORDER SHEET NOTES: [Electronically signed by Marielena Wooten R.N. (06:09 11/23/2016)] [Electronically signed by Feroz Mcdaniels MD (21:54 11/23/2016)] [Electronically locked/signed by Marielena Wooten R.N. (06:09 11/23/2016)]
--- NOTE | 2016-11-23 01:27 | ED ORDER SUMMARY ---
..... Patient: CHRIS HAMLIN N OrderSheet [facility] VisitID: [id number] [place] [address] 56y, M Registration Date/Time: 11/22/2016 ORDER SHEET Weight: 99.7 kg (stated) Allergies: No Known Drug Allergy GENERAL ORDERS: Chest 1V Urgent (20:59 11/22/2016 Sasha Calderon) (Ack 21:03 LMuller) (21:27 LMuller) [employer] (Continuous) (SOB) (20:59 11/22/2016 Sasha Calderon) (21:01 EInderbitzen R.N.) CBC w Diff Urgent (21:00 11/22/2016 Sasha Calderon) (Sent 21:02 EInderbitzen R.N.) (Ack 21:03 LMuller) (21:03 EInderbitzen R.N.) CMP Urgent (21:00 11/22/2016 Sasha Calderon) (Ack 21:03 LMuller) (21:03 EInderbitzen R.N.) UA-Culture if indicated Urgent (21:00 11/22/2016 Sasha Calderon) (Ack 21:03 LMuller) (1:10 EInderbitzen R.N.) PT with INR Urgent (21:00 11/22/2016 Sasha Calderon) (Ack 21:03 LMuller) (21:03 EInderbitzen R.N.) Troponin-I Urgent (21:00 11/22/2016 Sasha Calderon) (Ack 21:03 LMuller) (21:03 EInderbitzen R.N.) D-Dimer Urgent (21:00 11/22/2016 Sasha Calderon) (Ack 21:03 LMuller) (21:03 EInderbitzen R.N.) BNP Urgent (21:00 11/22/2016 Sasha Calderon) (Ack 21:03 LMuller) (21:03 EInderbitzen R.N.) Pulse oximeter (21:00 11/22/2016 Sasha Calderon) (21:01 EInderbitzen R.N.) Oxygen (2 L/min) (NC) (21:00 11/22/2016 Sasha Calderon) (21:01 EInderbitzen R.N.) EKG - ER Stat (21:00 11/22/2016 Sasha Calderon) (21:01 EInderbitzen R.N.) (Ack 21:03 LMuller) CTA Thorax w Cont (Yes) (N/A) Urgent (21:21 11/22/2016 Sasha Calderon) (Ack 21:27 LMuller) (23:38 LMuller) Blood Culture (No) (N/A) Urgent (00:38 11/23/2016 Shimon RODRÍGUEZ) (Ack 0:41 LMuller) (1:10 EInderbitzen R.N.) PCT (Procalcitonin) Urgent (00:38 11/23/2016 Shimon RODRÍGUEZ) (0:41 LMuller) ABG (G) Urgent (00:46 11/23/2016 LMuller per protocol) (Ack 0:50 LMuller) (1:10 EInderbitzen R.N.) Urine Drug Screen Urgent (01:25 11/23/2016 Shimon RODRÍGUEZ) (1:27 EInderbitzen R.N.) MEDICATION ORDERS: Lovenox Subcut 1 mg/kg (HIGH ALERT MEDICATION, NOW) (00:27 11/23/2016 Shimon RODRÍGUEZ) (1:02 EInderbitzen R.N.) Metoprolol PO 25 mg (HIGH ALERT MEDICATION, NOW) (01:07 11/23/2016 Shimon RODRÍGUEZ) (1:13 EInderbitzen R.N.) IV FLUIDS: Metoprolol IV 5 mg (HIGH ALERT MEDICATION, NOW) (21:00 11/22/2016 Sasha Calderon) (Ack 21:04 EInderbitzen R.N.) (21:07 EInderbitzen R.N.) IV Saline Lock (21:11/22/2016 Sasha Calderon) (21:04 EInderbitzen R.N.) Lasix IV 40 mg (NOW) (00:28 11/23/2016 Shimon RODRÍGUEZ) (1:02 EInderbitzen R.N.) Diltiazem IV 20 mg (HIGH ALERT MEDICATION, NOW) (00:29 11/23/2016 Shimon RODRÍGUEZ) (0:55 EInderbitzen R.N.) Ativan IV 0.5 mg (HIGH ALERT MEDICATION, NOW) (00:39 11/23/2016 Shimon RODRÍGUEZ) (1:03 EInderbitzen R.N.) Diltiazem Drip IV : initial bolus 0 mg, then 5 mg/hr for 4h (HIGH ALERT MEDICATION, NOW, TITRATE); Urgent (00:57 11/23/2016 Shimon RODRÍGUEZ) (1:03 EInderbitzen R.N.) ORDER SHEET NOTES: [Electronically signed by Marielena Wooten R.N. (06:09 11/23/2016)] [Electronically signed by Feroz Mcdaniels MD (21:54 11/23/2016)] [Electronically locked/signed by Marielena Wooten R.N. (06:09 11/23/2016)]
--- NOTE | 2016-11-23 01:27 | ED NURSING NOTES ---
Clinical Report - Nurses [facility] [address] [place] [address] 11/22/2016 20:28 Patient: CHRIS HAMLIN TRIAGE Triage time 20:35 Nov 22 2016. Acuity: LEVEL 2. Chief Complaint: DYSPNEA. 20:35 11/22/16. SEPSIS SCREEN: Sepsis Screen. Negative (no infection suspected/documented). CARMELO COMA SCORE: [place] Coma Scale: 15- eyes open spontaneously (4); best verbal response- oriented x 4 (5); best motor response- obeys commands (6). --20:45 Marielena Wooten R.N. 20:35 11/22/16. BP: 148/130. HR: 126 (irregular). RR: 24. O2 saturation: 96% on room air. Temp: 97.7 F. Pain level now: 5/10. Additional comments: Atrial Fib. --20:45 Marielena Wooten R.N. Weight: 99.7 kg stated. Height/Length: 72 inches Per Patient. BMI: 29.8. --20:33 Marielena Wooten R.N. Medications Amlodipine besylate 10mg . Atorvastatin 20mg tab. Hydrocodon 7.5 -325 take 1 tab every 4 hrs as needed. Lantus Subcutaneous 30 units, at bedtime. Lasix Oral 40 mg, 2x a day. Lyrica 100mg 1- three times daily. --20:41 Marielena Wooten R.N. Coumadin Oral. --20:41 Marielena Wooten R.N. Medication/allergy information source: the patient. --20:45 Marielena Wooten R.N. Allergies No Known Drug Allergy. --20:39 Marielena Wooten R.N. History Arrived by private vehicle. Historian: patient. Accompanied by family and (brother Josh). Onset. (3 days). ( Gradually increasing dsypnea over the last few days, clothes are tighter, ankles swollen, + for orthopnea.). Treatment SPECIAL EDUCATION BUS DRIVER: None. SOCIAL HX: Heavy tobacco smoker (cigarette)- 1 pack per day (40 years). Occasional alcohol use. No drug use. No infectious disease exposure. ABUSE ASSESSMENT: No report of abuse. NUTRITIONAL RISK ASSESSMENT: The nutritional risk assessment revealed no deficiencies. FUNCTIONAL ASSESSMENT: Functional assessment: no impairments noted. LEARNING NEEDS ASSESSMENT: The learning needs assessment revealed no barriers. SKIN INTEGRITY ASSESSMENT: Skin integrity risk assessment completed. No skin integrity risk identified. --20:45 Marielena Wooten R.N. PROBLEMS: Pleural Effusion. Congestive Heart Failure. COPD - Chronic Obstructive Pulmonary Disease. Anxiety Reaction. Atrial Fibrillation. Rheumatoid arteritis. Neuropathy. Lifestyle / Substance Problems. Gout. Hypertension. Diabetes Mellitus. --20:41 Marielena Wooten R.N. ADDITIONAL SURGERIES: Cataract Surgery. Right ankle surgery . --20:41 Marielena Wooten R.N. Interventions ID band on patient. --20:45 Marielena Wooten R.N. PHYSICAL ASSESSMENT 20:49 11/22/16. To room via wheelchair. ( stage 2 ulcers reported to both heels. Patient has unaboot dressings on both lower legs. Some erythema is noted above the dressings.). GENERAL / NEURO / PSYCH: Alert. Oriented X 4. HEENT: Pupils equal, round and reactive to light. RESPIRATORY: Mild respiratory distress. The patient can speak in full sentences. Decreased breath sounds. CVS: Cardiac rhythm: atrial fibrillation with rapid ventricular response. Capillary refill less than 2 seconds. GI / : Abdomen soft. EXTREMITIES: Bilateral 2+ non-pitting edema of the lower extremities. SKIN: Skin is warm but moist. --20:49 Marielena Wooten R.N. 00:54 11/23/16. EXTREMITIES: ( Left foot wound ( over dorsal foot near base of great toe, with pink wound beds,. foul odor present. Right). --00:54 Marielena Wooten R.N. ( Large, baseball sized cyst on right elbow Large cyst size of golf ball over right middle finger at Proximal joint). --01:06 Marielena Wooten R.N. NURSING PROGRESS NOTES 20:46 11/22/16. The initial plan of care for this patient includes an assessment with efforts to address the patient's anxiety; the presence of pain; impairment of the cardiovascular and respiratory system. This plan of care was discussed with the patient. shelter monitor, pulse oximeter and NIBP monitor placed on patient; cardiac rehabilitation program director- Lead II; monitor alarms on. Patient gowned. Two patient identifiers checked. Call light placed in reach. Side rails up x 1. Patient ready for evaluation. --20:46 Marielena Wooten R.N. 20:46 11/22/2016 Site #1 started via IV in the left antecubital space with an 20g angiocath, with aseptic technique and good blood return; one attempt. Blood drawn: rainbow set. Labeled in the presence of the patient and sent to the lab. Saline lock flushed with 10 mL saline. --20:46 Marielena Wooten R.N. 20:57 11/22/16. ( MD at bedside). --20:57 Marielena Wooten R.N. 21:07 11/22/2016 Metoprolol (Metoprolol Tartrate) IVP 5 mg given over 2 minute(s) via site #1. Allergies verified and confirmed 5 rights. IV patency established. IV site checked: no pain, redness, or swelling. IV flushed thoroughly pre- and post-medication administration. IVP given by RN. --21:07 Marielena Wooten R.N. EKG time: (2102). EKG was ordered, performed by a tech and shown to the ED physician. --21:07 Ana Maria Suarez 21:16 11/22/16. BP: 175/101. HR: 104. RR: 20. O2 saturation: 95%. Pain level now 5/10. --21:16 Marielena Wooten R.N. 21:16 11/22/16. Cardiac rhythm: atrial fibrillation. --21:16 Marielena Wooten R.N. 21:43 11/22/16. BP: 146/97. HR: 107. RR: 20. O2 saturation: 98%. Pain level now 6/10. --21:44 Marielena Wooten R.N. Cardiac rhythm: atrial fibrillation. --21:44 Marielena Wooten R.N. The patient is calm and resting quietly. RESPIRATORY: No respiratory distress. SKIN: Skin is warm and dry. Skin color within normal limits. --22:57 Thomas Morton R.N. 22:56 11/22/16. BP: 165/123. HR: 112. RR: 19. O2 saturation: 95% on room air. --22:57 Thomas Morton R.N. 23:33 11/22/16. Patient transported to CT by stretcher. (and returned). --23:33 Marielena Wooten R.N. 23:47 11/22/16. ( Extensive teaching done bedside regarding CHF exacerbations, early indicators of decompensation and dietary restrictions.). --23:47 Marielena Wooten R.N. 00:17 11/23/16. Patient ID band checked for patient name and birthdate: patient confirmed. Instructions provided to collect clean catch urine and patient verbalized understanding. Clean catch urine collected with return of fermin-colored clear urine; sample sent to lab for urinalysis. Specimen labeled in the presence of the patient. --00:17 Marielena Wooten R.NFrancisco 00:18 11/23/16. BP: 160/134. HR: 130. RR: 20. O2 saturation: 95%. Pain level now 0/10. --00:18 Marielena Wooten R.N. 00:18 11/23/16. Cardiac rhythm: atrial fibrillation. --00:18 Marielena Wooten R.NFrancisco 00:37 11/23/16. ( Patient agitated and unable to find comfort. Tachypnea, tachycardia, with afib rvr up to 180. Called for EKG and additional help. Patient cant define what he is feeling other than he was feeling cold. Attempted EKG but unable to lay flat or hold still. MD gave verbal order for diltiazem 20 mg IV push for AF RVR 160. Meds given. O2 previously at 3 liters increased to 15 liters NRB. Patient dusky in lips, Respiratory rate 40 with wheezing. Patient then moved to room 1. RT at bedside collecting ABG.). --00:48 Marielena Wooten R.N. 00:49 11/23/16. BP: 106. HR: 113. RR: 48. O2 saturation: 95%. Additional comments: poor waveform. --00:52 Marielena Wooten R.N. ( Unaboot removed from legs.). --00:52 Marielena Wooten R.N. 00:55 11/23/16. BP: 185/106. --00:55 Marielena Wooten R.N. 00:40 11/23/2016 Diltiazem IVP 20 mg given over 2 minute(s) via site #1. Allergies verified and confirmed 5 rights. IV patency established. IV site checked: no pain, redness, or swelling. IV flushed thoroughly pre- and post-medication administration. IVP given by RN. --00:56 Marielena Wooten R.N. 00:55 11/23/2016 Ativan (LORazepam) IVP 0.5 mg given over 1 minute(s) via site #1. Allergies verified, confirmed 5 rights and sedative warning given to the patient. IV patency established. IV site checked: no pain, redness, or swelling. IV flushed thoroughly pre- and post-medication administration. IVP given by RN. --01:03 Mairelena Wooten R.NFrancisco 00:58 11/23/2016 Lovenox (Enoxaparin Sodium) Subcutaneous 100 mg given. Given in the right upper arm. Allergies verified and confirmed 5 rights. --01:02 Marielena Wooten R.N. 01:00 11/23/2016 Lasix IVP 40 mg given over 2 minute(s) via site #1. Allergies verified and confirmed 5 rights. IV patency established. IV site checked: no pain, redness, or swelling. IV flushed thoroughly pre- and post-medication administration. IVP given by RN. --01:02 Marielena Wooten R.N. 01:03 11/23/2016 Started 125 mg of Diltiazem Drip IV in bag #1 125 mL; at 5 mg/hr over 10 hour(s) via site #1 via IV pump. Allergies verified and confirmed 5 rights. IV patency established. IV site checked: no pain, redness, or swelling. IV flushed thoroughly pre- and post-medication administration. --01:03 Marielena Wooten R.N. 01:11/23/16. BP: 157/96. HR: 100. RR: 24. O2 saturation: 99%. Temp: 98.1 F. --01:07 Marielena Wooten R.N. 01:11/23/16. Cardiac rhythm: atrial fibrillation. --01:07 Marielena Wooten R.N. 01:11/23/16. Oxygen decreased to 3 liters; oxygen at 3 liters discontinued due to patient improvement. --01:09 Marielena Wooten R.NFrancisco 01:13 11/23/2016 Metoprolol PO Tablets 25 mg given. Allergies verified and confirmed 5 rights. --01:13 Marielena Wooten R.N. 01:11/23/16. Cardiac rhythm: atrial fibrillation. Reassessment after medication administered. Overall patient status is improved- he states feels better. --01:20 Marielena Wooten R.N. 01:11/23/16. BP: 145/101. HR: 110. RR: 34. O2 saturation: 99%. --01:20 Marielena Wooten R.NFrancisco 01:11/23/16. ( Dr Walton admission profile form given to patient.). --01:27 Marielena Wooten R.N. 01:11/23/16. Cardiac rhythm: atrial fibrillation. --01:33 Marielena Wooten R.NFrancisco 01:11/23/16. BP: 151/106. HR: 105. RR: 32. O2 saturation: 98%. --01:33 Marielena Wooten R.N. 01:50 11/23/16. BP: 133/82. HR: 110. RR: 28. O2 saturation: 99%. --01:50 Marielena Wooten R.N. 01:50 11/23/16. Cardiac rhythm: atrial fibrillation. --01:50 Marielena Wooten R.N. 01:51 11/23/16. Overall patient status is improved- he states feels better. --01:51 Marielena Wooten R.N. 02:17 11/23/2016 Diltiazem Drip IV Discontinued: STOPPED. Total amount infused: 5 ml mL. IV patency established. IV site checked: no pain, redness, or swelling. IV flushed thoroughly. --02:17 Marielena Wooten R.N. 03:26 11/23/16. The patient is calm and resting quietly. Overall patient status is improved- he states feels better. RESPIRATORY: The patient reports difficulty breathing is still present but improving and currently mild in severity. ( Patient given sips of water). --03:26 Marielena Wooten R.N. 03:26 11/23/16. Patient informed about reason for wait. --03:27 Marielena Wooten R.N. 04:07 11/23/16. ( Patient repositioned in bed, kerlix wraps to both lower extremities and then secured with 6" gauze. Pt tolerated well,. Voices no complaints). --04:07 Marielena Wooten R.N. 05:02 11/23/16. --05:02 Marielena Wooten R.N. ( No change in patient condition. A fib on monitor rate 110-120. Patient resting with eyes closed.). --05:43 Marielena Wooten R.N. 05:45 11/23/16. ( Patient repositioined and given recliner. States much more comfortable. Vitals stable). --06:06 Marielena Wooten R.N. Intake & Output Urine: 400 mL. --05:42 Marielena Wooten R.N. 06:08 11/23/16. Urine: 400 mL. --06:08 Marielena Wooten R.N. DISPOSITION / DISCHARGE 06:07 11/23/2016 Site #[address] upon admission; patent; flushes easily. --06:07 Marielena Wooten R.N. 06:07 11/23/16. Admitted to the Critical Care Unit (room 304). Report was given to a nurse via a phone call. Report included patient's care, treatment, medications, reviewed medication reconcilliation, and condition (including any recent changes or anticipated changes). All questions were answered. Report was acknowledged and care was transferred. (to GAMAL Liz). --06:07 Marielena Wooten R.N. 06:08 11/23/16. Cardiac rhythm: atrial fibrillation. --06:08 Marielena Wooten R.N. 06:09 11/23/16. Condition at departure: improved and stable. --06:09 Marielena Wooten R.N. 06:11/23/16. BP: 158/93. HR: 120. RR: 30. O2 saturation: 99%. Pain level now 5/10. --06:09 Marielena Wooten R.N. Locked/Released at 11/23/2016 6:10 by Marielena Wooten R.N.
--- NOTE | 2016-11-23 01:27 | ED CLINICAL REPORT ---
Clinical Report - Physicians/Mid Levels [facility] [address] [place] [address] 11/22/2016 20:28 Patient: CHRIS HAMLIN Time Seen: 2044. Arrived- By private vehicle. Historian- patient. HISTORY OF PRESENT ILLNESS Chief Complaint: DYSPNEA. This started past few days and is still present. It was abrupt in onset and has been constant but is not gone now. The dyspnea is severe and is worsened by exertion, is improved by rest and is improved with sitting upright. The patient has had foot swelling and orthopnea. No anxiety. (Diagnosed with a fib with RVR, CHF, and "borderline" COPD. States he was changed to coreg and metoprolol for the blood pressure and the a fib.). Similar symptoms previously: Recent medical care: Not recently seen/assessed. REVIEW OF SYSTEMS All systems otherwise negative, except as recorded above. PAST HISTORY See nurses notes. Problems: Pleural Effusion. Congestive Heart Failure. COPD - Chronic Obstructive Pulmonary Disease. Anxiety Reaction. Atrial Fibrillation. Bursitis. Rheumatoid arteritis. Neuropathy. Medication Refill. Lifestyle / Substance Problems. Dental Caries. Dental Abscess. Gout. Diabetes Mellitus. Additional Surgeries: Cataract Surgery. Right ankle surgery . Medications: Coumadin Oral. Amlodipine besylate 10mg . Atorvastatin 20mg tab. Hydrocodon 7.5 -325 take 1 tab every 4 hrs as needed. Lantus Subcutaneous 30 units, at bedtime. Lasix Oral 40 mg, 2x a day. Lyrica 100mg 1- three times daily. Allergies: No Known Drug Allergy. SOCIAL HISTORY Smoker- current status unknown. Occasional alcohol use. No drug use. No recent travel. Is a local resident. ADDITIONAL NOTES The nursing notes have been reviewed. PHYSICAL EXAM Vital Signs: 11/22/2016 20:35 BP: 148/130. HR: 126. RR: 24. O2 saturation: 96%. Temp: 97.7 F. Pain level now: 5/10. Hypertensive. Oxygen saturation normal. Appearance: Alert. Patient in mild distress. Eyes: Pupils equal, round and reactive to light. Eyes normal inspection. ENT: Ears normal. Nose normal. Pharynx normal. Uvula midline. Neck: Normal inspection. No jugular venous distention. Neck supple. CVS: Tachycardia. Abnormal rhythm. Heart sounds normal. Pulses normal. Respiratory: Mild respiratory distress with accessory muscle use. Expiratory mild bilateral wheezes in the bases. No stridor, rales or rhonchi. Abdomen: Soft and nontender. No organomegaly. Back: Normal inspection. Skin: Skin warm and dry. Normal skin color. No rash. Normal skin turgor. Extremities: Bilateral severe 3+ pitting edema of the lower extremities involving both feet, both ankles and both lower legs. Neuro: Oriented X 3. No motor deficit. No sensory deficit. LABS, X-RAYS, AND EKG EKG: Rate: 141. Atrial fibrillation. Q waves in lead V1 and V2. Right axis deviation. Changes present when compared to prior EKG. (June 09 and 2015). The study has been independently viewed by me. Chest X-ray: (IMPRESSION: 1. Moderate right pleural effusion with right basilar atelectasis/consolidation. Consider right basilar pneumonia. 2. Mild cardiomegaly and pulmonary vascular congestion. Consider mild congestive heart failure.). The X-rays were interpreted by the radiologist and contemporaneously by me. Chest CT: (IMPRESSION: 1. Moderate to large chronic right pleural effusion with right basilar compressive atelectasis/consolidation. 2. Small left pleural effusion. 3. Partially limited evaluation of pulmonary vessels due to respiratory motion, but no evidence of pulmonary embolus. 4. Mild cardiomegaly. Consider mild/chronic congestive heart failure.). The study was interpreted by the radiologist and contemporaneously by me. Laboratory Tests: Urine Drug Screen: (HUEY: 11/23/2016 00:01) ( MsgRcvd 11/23/2016 01:43) Final results Test Result Flag Units (Reference) AMPHETAMINE/METHAMPHETAMINE NEGATIVE (NEGATIVE) BARBITURATE NEGATIVE (NEGATIVE) BENZODIAZEPINE NEGATIVE (NEGATIVE) CANNABINOID NEGATIVE (NEGATIVE) COCAINE NEGATIVE (NEGATIVE) ECSTASY NEGATIVE (NEGATIVE) METHADONE NEGATIVE (NEGATIVE) OPIATE POSITIVE H (NEGATIVE) The urine drug screen is a qualitative screening test fordrug overdose and abuse. All screen results should beconsidered as presumptive.Drugs screened for are as follows:BenzodiazepinesCocaineAmphetamines/MetamphetaminesTHC (Tetrahydrocannabinol)OpiatesBarbituratesEcstasyMethadonePositive results are unconfirmed. For confirmation, notifythe lab for the specimen to be sent to the reference lab.All confirmations must be performed by a differentmethodology.The ingestion of natural herbal and plant productscontaining Ephedra/Ephedra metabolites can produce in urineone or more substances capable of cross reacting withamphetamine/methamphetamine immunoassays. These testsprovide a preliminary result only. A more specificalternative chemical method must be used to obtain aconfirmed analytical result. [id number]: (HUEY: 11/23/2016 00:38) ( MsgRcvd 11/23/2016 01:12) Final results Test Result Flag Units (Reference) PROCALCITONIN <0.5 ng/mL (0-0.5) PCT Concentration: Interpretation : Risk/option for action PCT <=0.5 ng/mL : Systemic : Low risk forinfection(sepsis): progression to severeis not likely. : systemic infection.Local bacterial : CAUTION-PCT levelsinfection is : below 0.5 ng/mL do notpossible. : exclude an infection,because localizedinfections (withoutsystemic signs) may beassociated with suchlow levels. If PCT ismeasured very earlyafter a bacterialchallenge (usually <6hours), these valuesmay still be low. Inthis case PCT shouldbe re-assessed 6-24hours later. PCT >0.5 and : Systemic infection: Moderate risk for<= 2 ng/mL : (sepsis) is : progression to severepossible, but : systemic infection.other conditions : The patient should beare known to : closely monitoredelevate PCT. : both clinically andby re-assessing PCTwithin 6-24 hours. PCT > 2 ng/mL : Systemic infection: High risk for(sepsis) is likely: progression to severeunless other : systemic infection.causes are known. : PCT >= 10 ng/mL : Important systemic: High likelihood ofinflammatory : severe sepsis orresponse, almost : septic shock.exclusively due to:severe bacterial :sepsis or septic :shock. : ABG: (HUEY: 11/23/2016 00:46) ( MsgRcvd 11/23/2016 00:58) Final results Test Result Flag Units (Reference) FIO2 100 % (20-101) ABG MODE OF DELIVERY NRB MODIFIED JOI TEST POSITIVE? NO LITERS PER MIN. 15 L/MIN (0-20) ARTERIAL BLOOD GAS SITE RR ARTERIAL BLOOD GAS pH 7.39 (7.35-7.45) ABG PCO2 43.0 mmHg (35-45) ABG PO2 170.0 H mmHg (80.0-100.0) ABG BASE EXCESS 0.8 H mmol/L (-6.0--6.0) ABG HCO3 25.9 mmol/L (20.0-26.0) ABG TCO2 27.3 mmol/L (24.0-30.0) ABG [id number] 492.4 H mmHg (7.0-14.0) *NOTE: Normal rangeis based on aFIO2 of 21% ABG SAT O2 99.9 % (95.1-100.0) ABG TOTAL HEMOGLOBIN 13.6 L g/dL (14.0-18.0) ABG O2 HEMOGLOBIN 97.1 % (95.0-100.0) ABG CARBOXYHEMOGLOBIN 2.8 H % (0.5-1.5) ABG METHEMOGLOBIN 0.0 L % (0.4-1.5) ABG RHEMOGLOBIN 0.1 % COMMENTS 15LNRB UA-Culture if indicated: (HUEY: 11/22/2016 00:05) ( [facility] 11/23/2016 00:30) Final results Test Result Flag Units (Reference) URINE COLOR [place] URINE APPEARANCE CLEAR URINE GLUCOSE NEGATIVE (NEGATIVE) URINE BILIRUBIN NEGATIVE (NEGATIVE) URINE KETONE NEGATIVE (NEGATIVE) URINE SPECIFIC GRAVITY 1.020 (1.010-1.030) URINE PH 5.5 (5.0-8.0) URINE PROTEIN 2+ (NEGATIVE) URINE UROBILINOGEN 1.0 EU/dL (0.2-1.0) URINE NITRITE NEGATIVE (NEGATIVE) URINE BLOOD 1+ (NEGATIVE) URINE LEUK ESTERASE NEGATIVE (NEGATIVE) URINE RBC 3-5 rbc/hpf (0-1) URINE WBC 0-1 wbc/hpf (0-1) URINE EPITHELIAL CELLS RARE EPI/hpf (0-5) URINE BACTERIA TRACE (<1+) (NONE SEEN) URINE COMMENT CULT NOT INDICATED 15-20 HYALINE CASTURINE CULTURES ARE SET-UP BASED ON THE FOLLOWING CRITERIA:POSITIVE NITRITEPOSITIVE LEUKOCYTE ESTERASEGREATER THAN 10 WHITE BLOOD CELLSMODERATE (2+) OR GREATER BACTERIA CBC w Diff: (HUEY: 11/22/2016 20:45) ( [facility] 11/22/2016 21:07) Final results Test Result Flag Units (Reference) WHITE BLOOD COUNT 9.8 K/uL (4.5-11.5) RED BLOOD COUNT 5.02 M/uL (4.50-5.90) HEMOGLOBIN 13.6 gm/dL (13.5-17.5) HEMATOCRIT 42.6 % (41.0-53.0) MEAN CELL VOLUME 85 fL (80-100) MEAN CORPUSCULAR HGB 27 pg (26-34) MEAN CORPUSCULAR HGB CONC 32 g/dL (31-37) RED CELL DISTRIBUTION WIDTH 18.7 H % (11.6-14.8) PLATELET COUNT 159 K/uL (150-400) NEUTROPHIL % 59.1 % (50-75) LYMPH % 27.6 % (25-40) MONO % 11.2 % (3-14) EOSINOPHIL % 1.0 % (0-4) BASOPHIL % 1.1 % (0-2) PT with INR: (HUEY: 11/22/2016 20:45) ( [facility] 11/22/2016 21:16) Final results Test Result Flag Units (Reference) INR 1.4 H (0.8-1.2) Low Intensity Therapy: INR 1.5-2.0 PT range 18.5-23.1Mod.Intensity Therapy: INR 2.0-3.0 PT range 23.1-31.5High Intensity Therapy: INR 2.5-3.5 PT range 27.4-35.5High Intensity Therapy 2: INR 3.0-4.0 PT range 31.5-39.3 D-DIMER QUANTITATIVE 2.69 H ug/mLFEU (0.27-0.52) The primary value of this quantitative assay relates toits negative predictive value (i.e. exclusion) of pulmonaryembolism/deep vein thrombosis/DIC.Elevated levels of d-dimer may also occur with:, age, cancer, inflammation, liver disease,post-op, infection, hematoma, coronary disease, peripheralarteriopathy, bleeding disorders and thrombolytic treatment.Results should be correlated with other clinical andradiological data.Testing Methodology: Latex Immunoassay BNP: (HUEY: 11/22/2016 20:45) ( [facility] 11/22/2016 21:30) Final results Test Result Flag Units (Reference) B-TYPE NATRIURETIC PEPTIDE 1290 H pg/ml (5-100) CMP: (HUEY: 11/22/2016 20:45) ( [facility] 11/22/2016 21:29) Final results Test Result Flag Units (Reference) GLUCOSE 98 mg/dL (70-110) BUN 24 H mg/dL (7-18) CREATININE 1.1 mg/dL (0.6-1.3) Estimated GFR >60 mL/min Estimated GFR- >60 mL/min Note: Persistent reduction over 3 months in eGFR<60 mL/min/1.73 m2 defines CKD. Patients with eGFR values>=60 mL/min/1.73 m2 may also have CKD if evidence ofpersistent proteinuria. Additional information may be foundat [email or web address]. SODIUM 142 mmol/L (136-145) POTASSIUM 4.0 mmol/L (3.5-5.1) CHLORIDE 104 mmol/L (98-107) CARBON DIOXIDE 28 mmol/L (21-32) CALCIUM 9.5 mg/dL (8.5-10.1) TOTAL PROTEIN 7.8 g/dL (6.4-8.2) ALBUMIN 3.1 L g/dL (3.3-5.0) BILIRUBIN, TOTAL 0.9 mg/dL (0.0-1.0) ALKALINE PHOSPHATASE 220 H U/L (46-116) AST (SGOT) 30 U/L (15-37) ALT (SGPT) 34 U/L (12-78) TROPONIN I <0.05 ng/mL (0.00-1.5) TROPONIN REFERENCE RANGE:<0.1 NEGATIVE0.1-1.5 INDETERMINANT>1.5 POSITIVE . PROGRESS AND PROCEDURES Discussed case with hospitalist, (Agustin - he saw the patient in the ER). Reviewed test results and need for additional work-up. Agreed upon treatment plan, need for patient follow-up and decision to admit. Consult obtained from cardiology. Dr. Santana. Case discussed. Phone consult only. Patient/family counseled. Old medical records reviewed. Disposition: Admitted. CLINICAL IMPRESSION Atrial fibrillation with uncontrolled rate. Congestive heart failure. Abnormal tests: (subtherapeutic INR). Diabetes. diabetic foot ulcers. (Electronically signed by Feroz Mcdaniels MD 11/23/2016 21:54)
--- NOTE | 2016-11-23 02:40 | Progress Note ---
Subjective General Admission History and Physical Examination Patient Name: Nader Beasley Admission Date: November 23, 2016 Primary Care Provider: Bob Curran M.D. Attending Physician: Jimmy Velez M.D. Admitting Physician: Jimmy Velez M.D. SUBJECTIVE Historian: Patient Reliability: Poor Chief Complaint: Anxious History of Present Illness: The patient is a 56-year-old white male with a significant past medical history of diabetes mellitus type 2, gout, osteoarthritis, hypertension, nicotine dependence-smoking, COPD, CHF, atrial fibrillation who presented to [facility] emergency department on the day of admission secondary to complaints of SOB and difficulty walking. [facility] ER evaluation was consistent with atrial fibrillation with rapid ventricular response, CHF, poorly controlled diabetes mellitus, bilateral foot ulcers. Secondary to the above, the patient was admitted by Jimmy Velez M.D. for further evaluation and treatment. The history of present was began approximately 2 days prior to admission when the patient had recurrent episodes of anxiety associated with shortness of breath, hyperventilation and palpitations. He does give a history of panic disorder. He also experienced increased difficulty with walking/pain. The patient has had chronic feet stasis ulcers current care for by the wound care clinic at [facility]. Secondary to the above, the patient presented to [facility] emergency department for further evaluation and treatment. Evaluation at [facility] emergency department showed the patient have findings of atrial fibrillation with rapid ventricular response. He was treated with IV diltiazem/beta blockers with control of his rate in the emergency department and subsequently admitted with a diagnosis of atrial fibrillation with rapid ventricular response, CHF, bilateral lower extremity foot ulcers, poorly controlled diabetes mellitus for further evaluation and treatment. PAST MEDICAL HISTORY Illnesses: 1. Diabetes mellitus type 2 2. Gout 3. Osteoarthritis 4. Hypertension 5. Nicotine dependence-smoking 6. COPD 7. Generalized anxiety disorder/panic disorder 8. Restless leg syndrome 9. Hypercholesterolemia 10. Atrial fibrillation 11. CHF 12. Bilateral foot ulcers Allergies: 1. No known drug allergies Medications: 1. Vicodin 5/325 one-2 by mouth every 4 hours when necessary pain 2. Allopurinol 100 mg by mouth daily 3. Aspirin 81 mg by mouth daily 4. Norvasc 2.5 mg by mouth daily 5. Lipitor 10 mg by mouth daily 6. Lasix 20 mg by mouth daily 7. NovoLog insulin-sliding scale 8. Lantus insulin dosage unknown 9. Lopressor 50 mg by mouth twice a day 10. Mirapex 0.25 mg by mouth daily at bedtime 11. Lyrica 25 mg by mouth twice a day Surgery: 1. 2016, cataract surgery 2. Right ankle surgery Injuries: 1. Ankle fracture-right side Hospitalizations: 1. For above medical problems and surgery FAMILY HISTORY Parents: 1. Father, , 74, prostate CA, 2. Mother, , 74, old age Siblings: 1. The patient has 4 male siblings one of which is and 2 living female siblings. Children: 1. None Other significant family history: None SOCIAL HISTORY 1. Marital Status: Single 2. Alevism: None 3. Education: High school plus vocational education 4. Employment History: [employer], disabled 2009 secondary to gout 5. Occupational health exposures: Dust, asbestos, loud noises, heavy lifting HABITS 1. Tobacco: 40 pack years, continues to smoke 1 pack per day 2. Drugs: None 3. Alcohol: None 4. Caffeine: 10 cups per day HEALTH SUPERVISION Item/Test 1. Not reviewed ADVANCED DIRECTIVES: 1. Full code IMMUNIZATIONS: 1. Pneumococcal: Unknown 2. Influenza: Unknown 3. Tetanus: Unknown REVIEW OF SYSTEMS Remarkable for those things stated in the history of present illness and past medical history. Seventeen point review of system completed with the following notable findings: Skin: Dryness Eyes: Pain Mouth: Dental problems Respiratory: Shortness of breath, cough Cardiovascular: Palpitations, rapid heart rate, ankle swelling, CHF, orthopnea Musculoskeletal: Joint stiffness, joint swelling redness, muscle cramping bilateral foot ulcers Neurological: Paresthesias Endocrine: Diabetes Psychological: Depression, anxiety Physical Exam General Appearance Alert, Oriented X3, Cooperative, Mild distress HEENT Atraumatic, PERRLA, EOMI, Moist mucous membranes Lungs decreased air movement, minimal bilat exp. wheezes, basilar rales. Neck Supple, No JVD Cardiovascular Normal S1 and S2, irregular rhythm, rate mild tachycardia Abdomen Normal bowel sounds, Soft, No tenderness, mild periumbilcal erythema Extremities No cyanosis, No clubbing, Bilateral lower extremity edema. Multiple ulcerations bilateral feet. See photo documentation. Mild surrounding erythema. Skin bilateral lower extremity ulcerations-see photo documentation Neurological Cranial nerves intact, No lateralizing signs Psych/Mental Status Mental status normal, Mood normal LAB Results Laboratory Tests 11/23 11/23 11/23 11/22 0046 0038 0001 2044 Blood Gas Sample Site RR Total CO2 (24.0 - 30.0 mmol/L) 27.3 ABG pH (7.35 - 7.45) 7.39 ABG pCO2 at Pt Temp (35 - 45 mmHg) 43.0 ABG pO2 at Pt Temp (80.0 - 100.0 mmHg) 170.0 ABG HCO3 (20.0 - 26.0 mmol/L) 25.9 ABG O2 Sat Calc/Magen (95.1 - 100.0 %) 99.9 ABG Base Excess (-6.0 - -6.0 mmol/L) 0.8 ABG Reduced Hgb (%) 0.1 ABG Carboxyhemoglobin (0.5 - 1.5 %) 2.8 ABG Methemoglobin (0.4 - 1.5 %) 0.0 Ozzy Test NO Other Total Hgb (14.0 - 18.0 g/dL) 13.6 A-a O2 Gradient (7.0 - 14.0 mmHg) 492.4 Hgb O2 Saturation (95.0 - 100.0 %) 97.1 O2 Liters/Min (0 - 20 L/MIN) 15 Vent Mode NRB FiO2 (20 - 101 %) 100 Blood Gas Comments 15LNRB Chemistry B-Natriuretic Peptide (5 - 100 pg/ml) 1290 Procalcitonin (0 - 0.5 ng/mL) <0.5 Toxicology Urine Opiates Screen (NEGATIVE) POSITIVE Urine Methadone Screen (NEGATIVE) NEGATIVE Ur Barbiturates Screen (NEGATIVE) NEGATIVE U Amphetamin/Meth Scrn (NEGATIVE) NEGATIVE MDMA (Ecstasy) Screen (NEGATIVE) NEGATIVE U Benzodiazepines Scrn (NEGATIVE) NEGATIVE Urine Cocaine Screen (NEGATIVE) NEGATIVE U Cannabinoids Screen (NEGATIVE) NEGATIVE 11/22 2044 Chemistry Plasma Sodium (136 - 145 mmol/L) 142 Plasma Potassium (3.5 - 5.1 mmol/L) 4.0 Plasma Chloride (98 - 107 mmol/L) 104 CO2 (Enzymatic) (21 - 32 mmol/L) 28 BUN (7 - 18 mg/dL) 24 Creatinine (0.6 - 1.3 mg/dL) 1.1 Est GFR ( Amer) (mL/min) >60 Est GFR (Non-Af Amer) (mL/min) >60 Glucose (70 - 110 mg/dL) 98 Plasma Calcium (8.5 - 10.1 mg/dL) 9.5 Total Bilirubin (0.0 - 1.0 mg/dL) 0.9 AST (15 - 37 U/L) 30 ALT (12 - 78 U/L) 34 Alkaline Phosphatase (46 - 116 U/L) 220 Troponin (0.00 - 1.5 ng/mL) <0.05 Total Protein (6.4 - 8.2 g/dL) 7.8 Albumin (3.3 - 5.0 g/dL) 3.1 Coagulation INR (0.8 - 1.2) 1.4 D-Dimer, Quantitative (0.27 - 0.52 ug/mLFEU) 2.69 Hematology WBC (4.5 - 11.5 K/uL) 9.8 RBC (4.50 - 5.90 M/uL) 5.02 Hgb (13.5 - 17.5 gm/dL) 13.6 Hct (41.0 - 53.0 %) 42.6 MCV (80 - 100 fL) 85 MCH (26 - 34 pg) 27 RDW (11.6 - 14.8 %) 18.7 Neut % (Auto) (50 - 75 %) 59.1 Lymph % (Auto) (25 - 40 %) 27.6 [place] % (Auto) (3 - 14 %) 11.2 Eos % (Auto) (0 - 4 %) 1.0 Baso % (Auto) (0 - 2 %) 1.1 Plt Count, EDTA (150 - 400 K/uL) 159 PUBS MCHC (31 - 37 g/dL) 32 Microbiology Date/Time Procedure - Status Source Growth 11/23 0110 Blood Culture - RECD BLOOD 11/23 0105 Blood Culture - RECD BLOOD Imaging Chest X-Ray IMPRESSION: 1. Moderate right pleural effusion with right basilar atelectasis/consolidation. Consider right basilar pneumonia. 2. Mild cardiomegaly and pulmonary vascular congestion. Consider mild congestive heart failure. Dictated by: FER ROMEO MD D: JONO;11/22/16 1519 CTA Thorax IMPRESSION: 1. Moderate to large chronic right pleural effusion with right basilar compressive atelectasis/consolidation. 2. Small left pleural effusion. 3. Partially limited evaluation of pulmonary vessels due to respiratory motion, but no evidence of pulmonary embolus. 4. Mild cardiomegaly. Consider mild/chronic congestive heart failure. 5. Findings called to emergency for Dr. Feroz Mcdaniels. Dictated by: FER ROMEO MD D: JONO;11/23/16 0011 Assessment and Plan Problem List 1. Atrial fibrillation Status Acute Onset Date 04/10/16 Plan -The patient presents with findings of chronic atrial fibrillation with rapid ventricular response -Treatment with IV Cardizem transition to beta kaylene therapy, Coreg plus when necessary Lopressor -Echocardiogram obtained 6 months ago consistent with biventricular hypokinesis without significant valvular abnormalities present. Estimated ejection fraction 35% +/-5%. -Continue anticoagulation-considered DOAC-xarelto/Eliquis -DC planning to assess for insurance payment in a.m. for DOAC usage. -Continue Coumadin -Daily INR 2. Diabetes mellitus Status Chronic Onset Date Unknown Plan -Patient with history of diabetes mellitus type 2 -Continue Lantus/Humalog insulin -Check hemoglobin A1c -Before meals and at bedtime blood glucose checks -Monitor 3. Hypertension Status Chronic Onset Date Unknown Plan -Patient with history of hypertension -Cozaar 25 mg by mouth twice a day, Coreg 6.25 mg by mouth every 8 hours, Lasix 20 mg by mouth daily 4. Gout Status Chronic Onset Date Unknown Plan -Patient with history of gout -Check uric acid level -Allopurinol 100 mg by mouth daily -Obtain medical records/medication list from doctor's office in a.m. 5. Nicotine dependence Status Chronic Onset Date Unknown Plan -Nicotine dependence-smoking -Encourage smoking cessation -Smoking cessation education -NicoDerm patch 21 mg topically daily when necessary for nicotine withdrawal -Encourage smoking abstinence post discharge 6. Hypercholesterolemia Status Chronic Onset Date Unknown Plan -Patient with history of hypercholesterolemia -Check lipid profile -Lipitor 20 mg by mouth daily -Monitor 7. CHF (congestive heart failure) Status Acute Onset Date Unknown Plan -Patient with history of CHF. -Ejection fraction 35% +/-5%. -No significant valvular abnormalities -Continue ARB Cozaar 25 mg by mouth twice a day, Coreg 6.25 mg by mouth every 8 hours, Lasix 20 mg by mouth daily, nitroglycerin paste 1 inch topically every 6 hours -Monitor -Recheck BNP in a.m. -Low-salt diet -CHF education 8. Chronic anticoagulation Status Chronic Onset Date Unknown Plan -Patient with history of chronic anticoagulation -INR low at 1.4 -Continue Coumadin with consideration of DOAC-xarelto -Have discharge planning investigate feasibility of DOAC use in this patient -Obtain records regarding Coumadin dosage from PCP Dr. Curran in a.m. 9. Diabetic foot ulcers Plan -Patient with diabetic foot ulcers -Consult podiatry/wound care -Possible associated cellulitis-begin ertapenem 1 g IV daily -X-ray foot rule out osteomyelitis 10. Peripheral arterial disease Status Chronic Onset Date Unknown Plan -Patient with history of peripheral arterial disease -Obtain previous workup -Obtain ELISABETH lower extremities 11. COPD (chronic obstructive pulmonary disease) Status Chronic Onset Date Unknown Plan -Patient with history of long-term smoking -Findings suggestive of COPD -DuoNeb one via nebulizer every 6 hours, albuterol neb when necessary -Schedule outpatient pulmonary function testing -Supplemental oxygen as necessary 12. Cellulitis of foot Status Acute Onset Date Unknown Plan -See above -Ertapenem 1 g IV daily -Monitor Current status: Fair, unstable Anticipated discharge date: Anticipated discharge in 2-3 days Anticipated discharge placement: Home Patient care time: Time spent in chart review, patient interview, physical exam, CPOE, and care documentation: 70 minutes Visit to patient today: 2 Complexity of care: High Initial patient evaluation: Emergency department DVT prophylaxis: Coumadin-chronic anticoagulation E&M Codes Admission: Inpt-High/29985
--- NOTE | 2016-11-23 13:34 | DIAGNOSTIC IMAGING REPORT ---
PROCEDURE: XR FOOT 1 OR 2 VIEWS BILATERAL INDICATION: diabetic foot ulcers TECHNIQUE: Three views of each foot. COMPARISON: Right foot x-ray 08/20/2016. FINDINGS: Left foot: Prominent soft tissue swelling medial to the first MTP joint with soft tissue ulceration and underlying destructive changes of the first metatarsal head. There also appears to be a cortical destruction at the base of the first great toe proximal phalanx both medially and laterally as well as subarticular central radiolucency. Findings are consistent with acute osteomyelitis. Right foot: Mild soft tissue swelling medial to the first MTP joint with diffuse mild increased radiodensity which may represent tophus versus therapeutic changes. There is cortical erosion of the first metatarsal head medially consistent with acute osteomyelitis. Mild to moderate first MTP joint degenerative changes. Again seen on the two screws to the medial malleolus and two screws in the distal fibula, unchanged. IMPRESSION: 1. Soft tissue swelling and ulceration overlying the left first MTP joint with acute osteomyelitis of the first metatarsal head and base of the great toe proximal phalanx 2. Cortical erosion of the right first metatarsal head medially with overlying soft tissue swelling also consistent with acute osteomyelitis.
--- NOTE | 2016-11-23 21:54 | ED MAR SUMMARY ---
..... Medication Administration Record [facility]erg[facility] [address] [facility] [address] Patient: CHRIS HAMLIN Visit ID: [id number] 56y, M Weight: 99.7 kg Height/Length: 72 in BMI: 29.8 ALLERGIES: No Known Drug Allergy Given 21:07 11/22/2016 Marielena Wooten R.N. Medication Administered: METOPROLOL [IVP] (METOPROLOL TARTRATE), Dose: 5 mg IVP over 2 minute(s), Site: #1 left AC. Medication Ordered: Metoprolol IV 5 mg (HIGH ALERT MEDICATION, NOW). Given 00:40 11/23/2016 Marielena Wooten R.N. Medication Administered: DILTIAZEM [IVP], Dose: 20 mg IVP over 2 minute(s), Site: #1 left AC. Medication Ordered: Diltiazem IV 20 mg (HIGH ALERT MEDICATION, NOW). Given 00:55 11/23/2016 Marielena Wooten R.N. Medication Administered: ATIVAN [IVP] (LORAZEPAM), Dose: 0.5 mg IVP over 1 minute(s), Site: #1 left AC. Medication Ordered: Ativan IV 0.5 mg (HIGH ALERT MEDICATION, NOW). Given 00:58 11/23/2016 Marielena Wooten R.N. Medication Administered: LOVENOX [SUBCUTANEOUS] (ENOXAPARIN SODIUM), Dose: 100 mg Subcutaneous. Medication Ordered: Lovenox Subcut 1 mg/kg (HIGH ALERT MEDICATION, NOW). Given 01:00 11/23/2016 Marielena Wooten R.N. Medication Administered: LASIX [IVP], Dose: 40 mg IVP over 2 minute(s), Site: #1 left AC. Medication Ordered: Lasix IV 40 mg (NOW). Start 01:03 11/23/2016 Marielena Wooten R.N., Stop 02:17 11/23/2016 Marielena Wooten R.N. Medication Administered: DILTIAZEM [IV DRIP], Dose: 125 mg Drip IV over 10 hour(s), Rate: 5 mg/hr, Dispensed: 125 mL bag, Site: #1 left AC. Medication Ordered: Diltiazem Drip IV : initial bolus 0 mg, then 5 mg/hr for 4h (HIGH ALERT MEDICATION, NOW, TITRATE); Urgent. Given 01:13 11/23/2016 Marielena Wooten R.N. Medication Administered: METOPROLOL [PO], Dose: 25 mg Tablets PO. Medication Ordered: Metoprolol PO 25 mg (HIGH ALERT MEDICATION, NOW).
--- NOTE | 2016-11-23 21:54 | ED DISCHARGE INSTRUCTIONS ---
Patient: CHRIS HAMLIN General Instructions [facility] VisitID: [id number] [address] [place] [place] [address] 56y, M Registration Date/Time: 11/22/2016 Atrial fibrillation with uncontrolled rate. Congestive heart failure. Abnormal tests: (subtherapeutic INR). Diabetes. diabetic foot ulcers. (Electronically signed by Feroz Mcdaniels MD 11/23/2016 21:54)
--- NOTE | 2016-11-23 21:54 | ED MED RECONCILIATION SUMMARY ---
Patient: CHRIS HAMLIN Medication Reconciliation Report [facility] VisitID: [id number] [address] [place] [address] 56y, M Registration Date/Time: 11/22/2016 Weight: 99.7 kg Height/Length: 72 in. BMI: 29.8 ALLERGIES: No Known Drug Allergy The patient's Home Medications are listed below: THE FOLLOWING MEDICATIONS NEED TO BE RECONCILED: Amlodipine besylate 10mg Atorvastatin 20mg tab Coumadin Oral Hydrocodon 7.5 -325 take 1 tab every 4 hrs as needed Lantus Subcutaneous 30 units, at bedtime Lasix Oral 40 mg, 2x a day Lyrica 100mg 1- three times daily The source(s) of the original Home Medication information: patient The following Medications were given to the patient in the Emergency Department: Metoprolol [IVP] IVP 5 mg, administered: 11/22/2016 9:07:00 PM Diltiazem [IVP] IVP 20 mg, administered: 11/23/2016 12:40:00 AM Lasix [IVP] IVP 40 mg, administered: 11/23/2016 1:00:00 AM Lovenox [Subcutaneous] Subcutaneous 100 mg, administered: 11/23/2016 12:58:00 AM Diltiazem [IV Drip] Drip IV bolus 0, then 125 mg 5 mg/hr, administered: 11/23/2016 1:03:00 AM Ativan [IVP] IVP 0.5 mg, administered: 11/23/2016 12:55:00 AM Metoprolol [PO] PO 25 mg, administered: 11/23/2016 1:13:00 AM The following Medications were prescribed to the patient: None.
--- NOTE | 2016-11-23 21:54 | ED DISCHARGE INSTRUCTIONS ---
Patient: CHRIS HAMLIN General Instructions [facility] VisitID: [id number] [address] [place] [place] [address] 56y, M Registration Date/Time: 11/22/2016 Atrial fibrillation with uncontrolled rate. Congestive heart failure. Abnormal tests: (subtherapeutic INR). Diabetes. diabetic foot ulcers. (Electronically signed by Feroz Mcdaniels MD 11/23/2016 21:54)
--- NOTE | 2016-11-23 21:54 | ED MAR SUMMARY ---
..... Medication Administration Record [facility] [address] [facility] [place] [address] Patient: CHRIS HAMLIN Visit ID: [id number] 56y, M Weight: 99.7 kg Height/Length: 72 in BMI: 29.8 ALLERGIES: No Known Drug Allergy Given 21:07 11/22/2016 Marielena Wooten R.N. Medication Administered: METOPROLOL [IVP] (METOPROLOL TARTRATE), Dose: 5 mg IVP over 2 minute(s), Site: #1 left AC. Medication Ordered: Metoprolol IV 5 mg (HIGH ALERT MEDICATION, NOW). Given 00:40 11/23/2016 Marielena Wooten R.N. Medication Administered: DILTIAZEM [IVP], Dose: 20 mg IVP over 2 minute(s), Site: #1 left AC. Medication Ordered: Diltiazem IV 20 mg (HIGH ALERT MEDICATION, NOW). Given 00:55 11/23/2016 Marielena Wooten R.N. Medication Administered: ATIVAN [IVP] (LORAZEPAM), Dose: 0.5 mg IVP over 1 minute(s), Site: #1 left AC. Medication Ordered: Ativan IV 0.5 mg (HIGH ALERT MEDICATION, NOW). Given 00:58 11/23/2016 Marielena Wooten R.N. Medication Administered: LOVENOX [SUBCUTANEOUS] (ENOXAPARIN SODIUM), Dose: 100 mg Subcutaneous. Medication Ordered: Lovenox Subcut 1 mg/kg (HIGH ALERT MEDICATION, NOW). Given 01:00 11/23/2016 Marielena Wooten R.N. Medication Administered: LASIX [IVP], Dose: 40 mg IVP over 2 minute(s), Site: #1 left AC. Medication Ordered: Lasix IV 40 mg (NOW). Start 01:03 11/23/2016 Marielena Wooten R.N., Stop 02:17 11/23/2016 Marielena Wooten R.N. Medication Administered: DILTIAZEM [IV DRIP], Dose: 125 mg Drip IV over 10 hour(s), Rate: 5 mg/hr, Dispensed: 125 mL bag, Site: #1 left AC. Medication Ordered: Diltiazem Drip IV : initial bolus 0 mg, then 5 mg/hr for 4h (HIGH ALERT MEDICATION, NOW, TITRATE); Urgent. Given 01:13 11/23/2016 Marielena Wooten R.N. Medication Administered: METOPROLOL [PO], Dose: 25 mg Tablets PO. Medication Ordered: Metoprolol PO 25 mg (HIGH ALERT MEDICATION, NOW).
--- NOTE | 2016-11-23 21:54 | ED MED RECONCILIATION SUMMARY ---
Patient: CHRIS HAMLIN Medication Reconciliation Report [facility] VisitID: [id number] [address] [place] [address] 56y, M Registration Date/Time: 11/22/2016 Weight: 99.7 kg Height/Length: 72 in. BMI: 29.8 ALLERGIES: No Known Drug Allergy The patient's Home Medications are listed below: THE FOLLOWING MEDICATIONS NEED TO BE RECONCILED: Amlodipine besylate 10mg Atorvastatin 20mg tab Coumadin Oral Hydrocodon 7.5 -325 take 1 tab every 4 hrs as needed Lantus Subcutaneous 30 units, at bedtime Lasix Oral 40 mg, 2x a day Lyrica 100mg 1- three times daily The source(s) of the original Home Medication information: patient The following Medications were given to the patient in the Emergency Department: Metoprolol [IVP] IVP 5 mg, administered: 11/22/2016 9:07:00 PM Diltiazem [IVP] IVP 20 mg, administered: 11/23/2016 12:40:00 AM Lasix [IVP] IVP 40 mg, administered: 11/23/2016 1:00:00 AM Lovenox [Subcutaneous] Subcutaneous 100 mg, administered: 11/23/2016 12:58:00 AM Diltiazem [IV Drip] Drip IV bolus 0, then 125 mg 5 mg/hr, administered: 11/23/2016 1:03:00 AM Ativan [IVP] IVP 0.5 mg, administered: 11/23/2016 12:55:00 AM Metoprolol [PO] PO 25 mg, administered: 11/23/2016 1:13:00 AM The following Medications were prescribed to the patient: None.
[2016-11-24] VITALS (12 sets, daily range): BP systolic 122–152; BP diastolic 67–98
--- NOTE | 2016-11-24 06:35 | Progress Note ---
Subjective General Note Date: November 24, 2016 Admission Date: November 23, 2016 Hospital Day: 2 PCP: Bob Curran M.D. Status: Inpatient Advanced Directive: FULL CODE Room: 304 Brief History: The patient is a 56-year-old white male with a significant past medical history of diabetes mellitus type 2, gout, osteoarthritis, hypertension, nicotine dependence-smoking, COPD, CHF, atrial fibrillation who presented to [facility] emergency department on the day of admission secondary to complaints of SOB and difficulty walking. [facility] ER evaluation was consistent with atrial fibrillation with rapid ventricular response, CHF, poorly controlled diabetes mellitus, bilateral foot ulcers. Secondary to the above, the patient was admitted by Jimmy Velez M.D. for further evaluation and treatment. For other history present illness, past medical history, family history, social history, review of systems, and admission physical examination please see the patient's history and physical examination and ER visit note in the patient's medical record. Subjective: The patient states he status is slightly improved today. Decrease shortness of breath. Patient had an episode of anxiety this a.m. Persistent discomfort lower extremities. Patient requests: No specific Medications and Allergies Medications Current Medications Sig/Darryl Start time Last Medication Dose Route Stop Time Status Admin Pantoprazole Sodium 40 MG DAILY@0600 11/24 0600 AC 11/24 Sesquihydrate PO 0526 Acetaminophen/ 1 TAB Q6H PRN 11/23 2044 AC 11/24 Hydrocodone Bitart PO 0404 Furosemide 20 MG DAILY 11/23 2044 AC 11/23 PO 2300 Atorvastatin Calcium 20 MG QPM 11/23 1800 AC 11/23 PO 1824 Ascorbic Acid 1,000 MG DAILY 11/23 1500 AC 11/23 PO 1537 Zinc Sulfate 220 MG DAILY 11/23 1500 AC 11/23 PO 1537 Warfarin Sodium 5 MG DAILY@1400 11/23 1400 AC 11/23 PO 1339 Diltiazem HCl 180 MG DAILY 11/23 1130 AC 11/23 PO 1153 Allopurinol 100 MG DAILY 11/23 0900 AC 11/23 PO 0851 Insulin Glargine 30 UNITS DAILY 11/23 0900 AC 11/23 SC 0853 Losartan Potassium 25 MG BID 11/23 0900 AC 11/23 PO 2057 Nicotine 21 MG DAILY 11/23 0900 AC 11/23 TOP 0851 Albuterol/Ipratropium 3 ML RTQ6H 11/23 0800 AC 11/23 IN 2005 Insulin Human Lispro See Dose ACHS 11/23 0730 AC 11/23 Insts (1) SC 2055 Ertapenem 1,000 MG DAILY@1400 11/23 0700 AC 11/23 Sodium Chloride 50 ML IV 0851 Carvedilol 6.25 MG Q8HR 11/23 0600 AC 11/24 PO 0525 Nitroglycerin 1 GM Q6HR 11/23 0600 AC 11/24 TOP 0525 Metoprolol Tartrate See Dose Q3H PRN 11/23 0430 AC 11/23 Insts (2) IV 1217 Docusate Sodium 100 MG BID 11/23 0400 AC 11/23 PO 2023 Acetaminophen 650 MG Q4H PRN 11/23 0245 AC PO Albuterol Sulfate 2.5 MG Q3H PRN 11/23 0245 AC IN Atropine Sulfate 0.5 MG Q3MIN PRN 11/23 0245 AC IV Lidocaine HCl See Dose ONCE PRN 11/23 0245 AC Insts (3) IV Nitroglycerin 0.4 MG Q5M PRN 11/23 0245 AC SL Ondansetron HCl 4 MG Q6H PRN 11/23 0245 AC IV Sodium Chloride 1,000 ML ASDIRECTED 11/23 0245 AC 11/24 IV 0534 Dose Instructions: (1)Insulin Human Lispro: LOW DOSE SLIDING SCALE (2)Metoprolol Tartrate: 2.5 - 5 MG (3)Lidocaine HCl: 1.5 MG/KG Allergies Coded Allergies: No Known Drug Allergy (06/09/16) Physical Exam Vital Signs / I&Os Vital Signs Date Time Temp Pulse Resp B/P Pulse O2 O2 Flow FiO2 Ox Delivery Rate 11/24 0600 74 20 131/79 95 Room Air 11/24 0525 86 11/24 0500 81 20 128/80 96 Room Air 11/24 0400 91 20 126/89 94 Room Air 11/24 0300 97.5 89 20 133/85 95 Room Air 11/24 0200 75 20 126/94 95 Room Air 11/24 0100 77 20 135/87 91 Nasal 1.0 Cannula 11/24 0000 95 20 129/82 97 Nasal 1.0 Cannula 11/23 2300 98.2 75 20 136/95 97 Nasal 1.0 Cannula 11/23 2202 100 20 125/88 93 Nasal 2.0 Cannula 11/23 2113 93 20 138/90 93 Nasal 2.0 Cannula 11/23 2107 99 11/23 2012 87 20 126/87 92 Nasal 2.0 Cannula 11/23 2004 2.0 11/23 1947 2.0 11/23 1905 83 20 118/74 90 11/23 1813 98.1 93 20 131/79 90 11/23 1707 112 20 141/96 93 11/23 1613 99 20 135/88 96 11/23 1500 116 20 127/93 96 Nasal Cannula 11/23 1440 NC/FT 11/23 1403 3.0 11/23 1400 98.2 115 24 136/98 96 Nasal 3.0 Cannula 11/23 1339 124 11/23 1300 123 24 135/100 96 Nasal 3.0 Cannula 11/23 1200 67 24 132/92 99 Nasal 3.0 Cannula 11/23 1100 98.8 141 24 137/86 99 Nasal 3.0 Cannula 11/23 1000 142 24 143/104 99 Nasal 3.0 Cannula 11/23 0900 126 24 138/96 99 Nasal 3.0 Cannula 11/23 0801 3.0 11/23 0800 152 24 149/116 99 Nasal 3.0 Cannula 11/23 0638 119 I&O 11/24 0000 11/23 1600 11/23 0800 Intake Total 600 800 240 Output Total 350 750 0 Balance 250 50 240 General Appearance Alert, Oriented X3, Cooperative, No acute distress Lungs Normal air movement, scattered rhonchi, minimal expiratory wheezes Cardiovascular Normal S1 and S2, irregular rhythm. Murmur unchanged. Abdomen Normal bowel sounds, Soft, No tenderness Extremities No cyanosis, No clubbing, wounds appear unchanged. Mild erythema. Neurological Cranial nerves intact, No lateralizing signs Psych/Mental Status Mental status normal, Mood normal LAB Results Laboratory Tests 11/24 11/24 0425 0425 Chemistry Plasma Sodium (136 - 145 mmol/L) 139 Plasma Potassium (3.5 - 5.1 mmol/L) 4.0 Plasma Chloride (98 - 107 mmol/L) 104 CO2 (Enzymatic) (21 - 32 mmol/L) 26 BUN (7 - 18 mg/dL) 32 Creatinine (0.6 - 1.3 mg/dL) 1.4 Est GFR ( Amer) (mL/min) >60 Est GFR (Non-Af Amer) (mL/min) 55.32 Glucose (70 - 110 mg/dL) 142 Plasma Calcium (8.5 - 10.1 mg/dL) 8.7 B-Natriuretic Peptide (5 - 100 pg/ml) 1170 Coagulation INR (0.8 - 1.2) 1.7 Hematology WBC (4.5 - 11.5 K/uL) 6.4 RBC (4.50 - 5.90 M/uL) 4.34 Hgb (13.5 - 17.5 gm/dL) 11.9 Hct (41.0 - 53.0 %) 36.9 MCV (80 - 100 fL) 85 MCH (26 - 34 pg) 28 RDW (11.6 - 14.8 %) 18.2 Neut % (Auto) (50 - 75 %) Pending Lymph % (Auto) (25 - 40 %) Pending [place] % (Auto) (3 - 14 %) Pending Band Neutrophils % (0 - 8 %) Pending Plt Count, EDTA (150 - 400 K/uL) 124 PUBS MCHC (31 - 37 g/dL) 32 Microbiology Date/Time Procedure - Status Source Growth 11/23 1540 Deep Wound Culture - RES FOOT 11/23 1540 Deep Wound Culture - RES FOOT 11/23 1540 Gram Stain - RES FOOT 11/23 0645 MRSA Screen - RECD NASAL Imaging Bilateral Foot X-Ray MPRESSION: 1. Soft tissue swelling and ulceration overlying the left first MTP joint with acute osteomyelitis of the first metatarsal head and base of the great toe proximal phalanx 2. Cortical erosion of the right first metatarsal head medially with overlying soft tissue swelling also consistent with acute osteomyelitis. Dictated by: BALJIT LEONARD MD D: SOLITARIO;11/23/16 7268 Addendum to Bilateral Foot X-Ray Addendum created at 11/23/2016 3:57:36 PM: Addendum: The patient has a history of gout and the periarticular erosions are consistent with gout arthropathy. Addendum by: Baljit Leonard MD Dictated by: BALJIT LEONARD MD [id number] Assessment and Plan Problem List 1. Atrial fibrillation Status Acute Onset Date 04/10/16 Plan -Rate controlled -We'll attempt switch to beta kaylene/digoxin as opposed to Cardizem secondary to severe lower extremity edema -Monitor 2. Diabetes mellitus Status Chronic Onset Date Unknown Plan -Blood glucose fairly well-controlled -Fasting blood sugar today 142 mg/dL -Continue present therapy with Lantus/lispro insulin -Monitor 3. Hypertension Status Chronic Onset Date Unknown Plan -Blood pressure mildly elevated -Blood pressure this a.m. normal at 122/87 mmHg -Continue present therapy -Low-salt diet 4. Gout Status Chronic Onset Date Unknown Plan -Patient with history of gout -Multiple gouty tophi present -Uric acid level elevated at 9.5 -Increase allopurinol to 300 mg by mouth daily -Monitor 5. Nicotine dependence Status Chronic Onset Date Unknown 6. Hypercholesterolemia Status Chronic Onset Date Unknown Plan -Patient with history of hypercholesterolemia -Lipid profile shows normal cholesterol 89, LDL 38, HDL 35, triglycerides 83 -No further evaluation -Low-cholesterol diet 7. CHF (congestive heart failure) Status Acute Onset Date Unknown Plan -Patient with history of CHF -Continue losartan, Coreg, Lasix. -Significant peripheral edema will change Lasix to 40 mg IV twice a day added Aldactone 25 mg by mouth twice a day -Monitor 8. Chronic anticoagulation Status Chronic Onset Date Unknown Plan -We'll switch to xarelto 20 mg by mouth daily -DC Coumadin 9. Diabetic foot ulcers 10. Peripheral arterial disease Status Chronic Onset Date Unknown Plan -Stable -No rest pain -Outpatient follow-up per PCP 11. COPD (chronic obstructive pulmonary disease) Status Chronic Onset Date Unknown Plan -Status improved -Outpatient primary function testing -DuoNeb, albuterol -Monitor 12. Cellulitis of foot Status Acute Onset Date Unknown Plan -Stable -Continue ertapenem -Await final culture and sensitivity of the foot wound -X-rays inconsistent with osteomyelitis represents gouty arthritis with bony erosion Current status: Fair, improved Anticipated discharge date: Anticipated discharge in 1-2 days Anticipated discharge placement: Home Patient care time: Time spent in chart review, patient interview, physical exam, CPOE, and care documentation: 35 minutes Visit to patient today: 2 Complexity of care: High E&M Codes Rounding: Inpt-High/[id number]
[2016-11-25] VITALS (7 sets, daily range): BP systolic 145–158; BP diastolic 82–109
--- NOTE | 2016-11-25 15:40 | Progress Note ---
Subjective General Note Date: November 25, 2016 Admission Date: November 23, 2016 Hospital Day: 3 PCP: Bob Curran M.D. Status: Inpatient Advanced Directive: FULL CODE Room: 304 Brief History: The patient is a 56-year-old white male with a significant past medical history of diabetes mellitus type 2, gout, osteoarthritis, hypertension, nicotine dependence-smoking, COPD, CHF, atrial fibrillation who presented to [facility] emergency department on the day of admission secondary to complaints of SOB and difficulty walking. [facility] ER evaluation was consistent with atrial fibrillation with rapid ventricular response, CHF, poorly controlled diabetes mellitus, bilateral foot ulcers. Secondary to the above, the patient was admitted by Jimmy Velez M.D. for further evaluation and treatment. For other history present illness, past medical history, family history, social history, review of systems, and admission physical examination please see the patient's history and physical examination and ER visit note in the patient's medical record. Subjective: The patient states his overall status is improved today. Shortness of breath improved. He has persistent lower extremity pain. No other specific complaints at this time. Patient requests: No specific Medications and Allergies Medications Current Medications Sig/Darryl Start time Last Medication Dose Route Stop Time Status Admin Rivaroxaban 20 MG 1800 11/25 1800 AC PO Cephalexin 500 MG TID 11/25 1530 AC PO Acetaminophen/ 1 TAB Q4H PRN 11/25 1400 AC 11/25 Hydrocodone Bitart PO 1401 Carvedilol 12.5 MG Q8HR 11/25 1000 AC 11/25 PO 1401 Spironolactone 25 MG BID 11/24 2100 AC 11/25 PO 0836 Furosemide 40 MG DIUB 11/24 1800 AC 11/25 IV 0551 Pantoprazole Sodium 40 MG DAILY@0600 11/24 0600 AC 11/25 Sesquihydrate PO 0551 Atorvastatin Calcium 20 MG QPM 11/23 1800 AC 11/24 PO 1723 Ascorbic Acid 1,000 MG DAILY 11/23 1500 AC 11/25 PO 0836 Zinc Sulfate 220 MG DAILY 11/23 1500 AC 11/25 PO 0836 Allopurinol 100 MG DAILY 11/23 0900 AC 11/25 PO 0836 Insulin Glargine 30 UNITS DAILY 11/23 0900 AC 11/25 SC 0836 Losartan Potassium 25 MG BID 11/23 0900 AC 11/25 PO 0836 Nicotine 21 MG DAILY 11/23 0900 AC 11/25 TOP 0836 Albuterol/Ipratropium 3 ML RTQ6H 11/23 0800 AC 11/25 IN 1415 Insulin Human Lispro See Dose ACHS 11/23 0730 AC 11/24 Insts (1) SC 2109 Nitroglycerin 1 GM Q6HR 11/23 0600 AC 11/25 TOP 1201 Metoprolol Tartrate See Dose Q3H PRN 11/23 0430 AC 11/23 Insts (2) IV 1217 Docusate Sodium 100 MG BID 11/23 0400 AC 11/25 PO 0836 Acetaminophen 650 MG Q4H PRN 11/23 0245 AC PO Albuterol Sulfate 2.5 MG Q3H PRN 11/23 0245 AC IN Atropine Sulfate 0.5 MG Q3MIN PRN 11/23 0245 AC IV Lidocaine HCl See Dose ONCE PRN 11/23 0245 AC Insts (3) IV Nitroglycerin 0.4 MG Q5M PRN 11/23 0245 AC SL Ondansetron HCl 4 MG Q6H PRN 11/23 0245 AC IV Sodium Chloride 1,000 ML ASDIRECTED 11/23 0245 AC 11/25 IV 0836 Dose Instructions: (1)Insulin Human Lispro: LOW DOSE SLIDING SCALE (2)Metoprolol Tartrate: 2.5 - 5 MG (3)Lidocaine HCl: 1.5 MG/KG Allergies Coded Allergies: No Known Drug Allergy (06/09/16) Physical Exam Vital Signs / I&Os Vital Signs Date Time Temp Pulse Resp B/P Pulse O2 O2 Flow FiO2 Ox Delivery Rate 11/25 1441 97.9 97 20 145/105 95 Room Air 11/25 1401 96 11/25 1016 88 11/25 0918 108 20 154/107 95 Room Air 0.0 11/25 0652 94 147/95 11/25 0651 97.7 94 18 154/109 96 Room Air 0.0 11/25 0551 89 11/25 0024 97.9 79 18 151/82 96 Room Air 11/24 2219 97.5 16 152/98 96 Room Air 1.0 11/24 2109 89 11/24 1915 1.0 11/24 1828 97.5 66 19 142/67 97 Room Air 0.0 I&O 11/25 0000 11/24 1600 11/24 0800 Intake Total 3430 879 0162 Output Total 1350 925 325 Balance -887 43 5909 General Appearance Alert, Oriented X3, Cooperative, No acute distress Lungs Minimal expiratory wheezes. Scattered rhonchi Cardiovascular Normal S1 and S2, irregular rhythm, mild tachycardia Abdomen Normal bowel sounds, Soft, No tenderness Extremities No cyanosis, No clubbing, foot wounds unchanged. See wound care notes. Neurological Cranial nerves intact, No lateralizing signs Psych/Mental Status Mental status normal, Mood normal LAB Results Laboratory Tests 11/25 11/25 0555 0555 Chemistry Plasma Sodium (136 - 145 mmol/L) 140 Plasma Potassium (3.5 - 5.1 mmol/L) 4.1 Plasma Chloride (98 - 107 mmol/L) 104 CO2 (Enzymatic) (21 - 32 mmol/L) 26 BUN (7 - 18 mg/dL) 32 Creatinine (0.6 - 1.3 mg/dL) 1.1 Est GFR ( Amer) (mL/min) >60 Est GFR (Non-Af Amer) (mL/min) >60 Glucose (70 - 110 mg/dL) 110 Plasma Calcium (8.5 - 10.1 mg/dL) 8.8 Total Bilirubin (0.0 - 1.0 mg/dL) 0.7 AST (15 - 37 U/L) 26 ALT (12 - 78 U/L) 34 Alkaline Phosphatase (46 - 116 U/L) 197 B-Natriuretic Peptide (5 - 100 pg/ml) 628 Total Protein (6.4 - 8.2 g/dL) 7.2 Albumin (3.3 - 5.0 g/dL) 2.9 Hematology WBC (4.5 - 11.5 K/uL) 7.5 RBC (4.50 - 5.90 M/uL) 4.38 Hgb (13.5 - 17.5 gm/dL) 11.8 Hct (41.0 - 53.0 %) 37.6 MCV (80 - 100 fL) 86 MCH (26 - 34 pg) 27 RDW (11.6 - 14.8 %) 18.6 Neut % (Auto) (50 - 75 %) 52 Lymph % (Auto) (25 - 40 %) 34 [place] % (Auto) (3 - 14 %) 2 Eos % (Auto) (0 - 4 %) 5 Baso % (Auto) (0 - 2 %) 0 Band Neutrophils % (0 - 8 %) 7 Metamyelocytes % (0 - 1 %) 0 Myelocytes (0 - 1 %) 0 Other Cell Type 0 Plt Count, EDTA (150 - 400 K/uL) 146 Hypochromic-Microcytic 2+ Anisocytosis (manual) 1+ PUBS MCHC (31 - 37 g/dL) 32 Assessment and Plan Problem List 1. Atrial fibrillation Status Acute Onset Date 04/10/16 Plan -Patient with persistent atrial fibrillation -Cardizem discontinued -Increased Coreg to 12.5 mg by mouth 3 times a day -Monitor -Continue anticoagulation 2. Diabetes mellitus Status Chronic Onset Date Unknown Plan -Patient with long-standing type 2 diabetes mellitus -Blood sugar is well controlled. Fasting blood sugar this a.m. 104 mg/dL -Continue present therapy 3. Hypertension Status Chronic Onset Date Unknown Plan -Blood pressure mildly elevated at this time. BP this a.m. 147/95 mmHg -Increase Coreg to 12.5 mg by mouth every 8 hours -Increase Cozaar to 50 mg by mouth twice a day -Monitor -Low-salt diet. 4. Gout Status Chronic Onset Date Unknown Plan -Uric acid level elevated -Increase allopurinol to 200 mg by mouth daily -Monitor 5. Nicotine dependence Status Chronic Onset Date Unknown Plan -Patient with history of nicotine dependence-smoking -Smoking cessation education. -NicoDerm patch as needed. -Encourage smoking cessation/abstinence post discharge 6. Hypercholesterolemia Status Chronic Onset Date Unknown 7. CHF (congestive heart failure) Status Acute Onset Date Unknown Plan -status improved. -BNP significantly improved since admission -Continue present therapy with losartan, Coreg, diuretics -Monitor 8. Chronic anticoagulation Status Chronic Onset Date Unknown Plan -Patient placed on xarelto 20 mg by mouth daily 9. COPD (chronic obstructive pulmonary disease) Status Chronic Onset Date Unknown Plan -Stable -Continue present therapy -No O2 requirements at this time. 10. Cellulitis of foot Status Acute Onset Date Unknown Plan -Status improved -Culture results grew out MSSA and Klebsiella sensitive to Keflex -Switch to Keflex 500 mg by mouth 3 times a day -Outpatient follow-up with wound care and podiatry Current status: Fair, improved Anticipated discharge date: Antic[facility] Patient care time: Time spent in chart review, patient interview, physical exam, CPOE, and care documentation: 35 minutes Visit to patient today: 1 Complexity of care: High
[2016-11-26 02:15] VITALS: BP 161/93
[2016-11-26 06:43] VITALS: BP 152/102
--- NOTE | 2016-11-26 08:08 | Progress Note ---
Subjective General Note Date: November 26, 2016 Admission Date: November 23, 2016 Hospital Day: 4 PCP: Bob Curran M.D. Status: Inpatient Advanced Directive: FULL CODE Room: 304 Brief History: The patient is a 56-year-old white male with a significant past medical history of diabetes mellitus type 2, gout, osteoarthritis, hypertension, nicotine dependence-smoking, COPD, CHF, atrial fibrillation who presented to [facility] emergency department on the day of admission secondary to complaints of SOB and difficulty walking. [facility] ER evaluation was consistent with atrial fibrillation with rapid ventricular response, CHF, poorly controlled diabetes mellitus, bilateral foot ulcers. Secondary to the above, the patient was admitted by Jimmy Velez M.D. for further evaluation and treatment. For other history present illness, past medical history, family history, social history, review of systems, and admission physical examination please see the patient's history and physical examination and ER visit note in the patient's medical record. Subjective: The patient states he is doing well. Ready for discharge. Patient requests: None Medications and Allergies Medications Current Medications Sig/Darryl Start time Last Medication Dose Route Stop Time Status Admin Allopurinol 200 MG DAILY 11/26 09 AC PO Losartan Potassium 50 MG BID 11/25 2100 AC 11/25 PO 2041 Acetaminophen/ See Dose Q4H PRN 11/25 1845 AC 11/26 Hydrocodone Bitart Insts (1) PO 0214 Rivaroxaban 20 MG 1800 11/25 1800 AC 11/25 PO 1757 Cephalexin 500 MG TID 11/25 1530 AC 11/26 PO 0511 Carvedilol 12.5 MG Q8HR 11/25 1000 AC 11/26 PO 0511 Spironolactone 25 MG BID 11/24 2100 AC 11/25 PO 2041 Furosemide 40 MG DIUB 11/24 1800 AC 11/26 IV 0511 Pantoprazole Sodium 40 MG DAILY@0600 11/24 0600 AC 11/26 Sesquihydrate PO 0511 Atorvastatin Calcium 20 MG QPM 11/23 1800 AC 11/25 PO 1757 Ascorbic Acid 1,000 MG DAILY 11/23 1500 AC 11/25 PO 0836 Zinc Sulfate 220 MG DAILY 11/23 1500 AC 11/25 PO 0836 Insulin Glargine 30 UNITS DAILY 11/23 0900 AC 11/25 SC 0836 Nicotine 21 MG DAILY 11/23 0900 AC 11/25 TOP 0836 Albuterol/Ipratropium 3 ML RTQ6H 11/23 0800 AC 11/26 IN 0738 Insulin Human Lispro See Dose ACHS 11/23 0730 AC 11/25 Insts (2) SC 2052 Nitroglycerin 1 GM Q6HR 11/23 0600 AC 11/26 TOP 0511 Metoprolol Tartrate See Dose Q3H PRN 11/23 0430 AC 11/23 Insts (3) IV 1217 Docusate Sodium 100 MG BID 11/23 0400 AC 11/25 PO 2041 Acetaminophen 650 MG Q4H PRN 11/23 0245 AC PO Albuterol Sulfate 2.5 MG Q3H PRN 11/23 0245 AC IN Atropine Sulfate 0.5 MG Q3MIN PRN 11/23 0245 AC IV Lidocaine HCl See Dose ONCE PRN 11/23 0245 AC Insts (4) IV Nitroglycerin 0.4 MG Q5M PRN 11/23 0245 AC SL Ondansetron HCl 4 MG Q6H PRN 11/23 0245 AC IV Dose Instructions: (1)Acetaminophen/Hydrocodone Bitart: 1 - 2 TABLETS (2)Insulin Human Lispro: LOW DOSE SLIDING SCALE (3)Metoprolol Tartrate: 2.5 - 5 MG (4)Lidocaine HCl: 1.5 MG/KG Allergies Coded Allergies: No Known Drug Allergy (06/09/16) Physical Exam Vital Signs / I&Os Vital Signs Date Time Temp Pulse Resp B/P Pulse O2 O2 Flow FiO2 Ox Delivery Rate 11/26 0644 98.2 11/26 0643 71 17 152/102 92 Room Air 0.0 11/26 0511 82 11/26 0215 98.4 103 11/26 0215 18 161/93 11/25 2220 94 11/25 2211 97.9 86 17 158/99 95 Room Air 11/25 1959 0.0 11/25 1823 90 20 94 11/25 1822 148/99 11/25 1441 97.9 97 20 145/105 95 Room Air 11/25 1401 96 11/25 1016 88 11/25 0918 108 20 154/107 95 Room Air 0.0 I&O 11/26 0000 11/25 1600 11/25 0800 Intake Total 383 379 8330 Output Total 2300 2600 1325 Balance -1356 -2080 222 General Appearance Alert, Oriented X3, Cooperative, No acute distress Lungs Scattered rhonchi. No significant wheezes. Cardiovascular Normal S1 and S2, irregular rhythm, rate controlled Abdomen Normal bowel sounds, Soft, No tenderness Extremities No cyanosis, No clubbing, Lower extremity edema slightly improved. Neurological Cranial nerves intact, No lateralizing signs Psych/Mental Status Mental status normal, Mood normal LAB Results Laboratory Tests 11/26 0633 Chemistry Plasma Sodium (136 - 145 mmol/L) 142 Plasma Potassium (3.5 - 5.1 mmol/L) 3.8 Plasma Chloride (98 - 107 mmol/L) 104 CO2 (Enzymatic) (21 - 32 mmol/L) 28 BUN (7 - 18 mg/dL) 25 Creatinine (0.6 - 1.3 mg/dL) 1.2 Est GFR ( Amer) (mL/min) >60 Est GFR (Non-Af Amer) (mL/min) >60 Glucose (70 - 110 mg/dL) 155 Plasma Calcium (8.5 - 10.1 mg/dL) 8.8 Total Bilirubin (0.0 - 1.0 mg/dL) 0.7 AST (15 - 37 U/L) 25 ALT (12 - 78 U/L) 34 Alkaline Phosphatase (46 - 116 U/L) 199 Total Protein (6.4 - 8.2 g/dL) 7.2 Albumin (3.3 - 5.0 g/dL) 3.1 Hematology WBC (4.5 - 11.5 K/uL) 7.6 RBC (4.50 - 5.90 M/uL) 4.56 Hgb (13.5 - 17.5 gm/dL) 12.4 Hct (41.0 - 53.0 %) 39.0 MCV (80 - 100 fL) 86 MCH (26 - 34 pg) 27 RDW (11.6 - 14.8 %) 18.2 Neut % (Auto) (50 - 75 %) 58.1 Lymph % (Auto) (25 - 40 %) 26.0 [place] % (Auto) (3 - 14 %) 12.1 Eos % (Auto) (0 - 4 %) 3.6 Baso % (Auto) (0 - 2 %) 0.2 Plt Count, EDTA (150 - 400 K/uL) 148 PUBS MCHC (31 - 37 g/dL) 32 Assessment and Plan Problem List 1. Atrial fibrillation Status Acute Onset Date 04/10/16 Plan -Rate control. -Continue present therapy. -Continue xarelto anticoagulation -Discharge to residential facility 2. Chronic anticoagulation Status Chronic Onset Date Unknown Plan -Xarelto -Follow up with PCP 3. CHF (congestive heart failure) Status Acute Onset Date Unknown Plan -Well-controlled -Continue present therapy -Low-salt diet -Discharge to residential facility Current status: Fair, improved Anticipated discharge date: Today Anticipated discharge placement: half-way facility Patient care time: Time spent in chart review, patient interview, physical exam, CPOE, and care documentation: Greater than 30 minutes Visit to patient today: 2 Complexity of care: Moderate E&M Codes Discharge: Inpt >30 min spent/[id number] Anticipated discharge date: [discharge date] Anticipated discharge placement: [Home] Patient care time: Time spent in chart review, patient interview, physical exam, CPOE, and care documentation: [ ] minutes Visit to patient today: [ ] Complexity of care: [ ] E&M Codes Rounding: Inpt-Moderate/[id number]
--- NOTE | 2016-11-26 08:08 | Progress Note ---
Subjective General Note Date: November 26, 2016 Admission Date: November 23, 2016 Hospital Day: 4 PCP: Bob Curran M.D. Status: Inpatient Advanced Directive: FULL CODE Room: 304 Brief History: The patient is a 56-year-old white male with a significant past medical history of diabetes mellitus type 2, gout, osteoarthritis, hypertension, nicotine dependence-smoking, COPD, CHF, atrial fibrillation who presented to [facility] emergency department on the day of admission secondary to complaints of SOB and difficulty walking. [facility] ER evaluation was consistent with atrial fibrillation with rapid ventricular response, CHF, poorly controlled diabetes mellitus, bilateral foot ulcers. Secondary to the above, the patient was admitted by Jimmy Velez M.D. for further evaluation and treatment. For other history present illness, past medical history, family history, social history, review of systems, and admission physical examination please see the patient's history and physical examination and ER visit note in the patient's medical record. Subjective: The patient states he is doing well. Ready for discharge. Patient requests: None Medications and Allergies Medications Current Medications Sig/Darryl Start time Last Medication Dose Route Stop Time Status Admin Allopurinol 200 MG DAILY 11/26 09 AC PO Losartan Potassium 50 MG BID 11/25 2100 AC 11/25 PO 2041 Acetaminophen/ See Dose Q4H PRN 11/25 1845 AC 11/26 Hydrocodone Bitart Insts (1) PO 0214 Rivaroxaban 20 MG 1800 11/25 1800 AC 11/25 PO 1757 Cephalexin 500 MG TID 11/25 1530 AC 11/26 PO 0511 Carvedilol 12.5 MG Q8HR 11/25 1000 AC 11/26 PO 0511 Spironolactone 25 MG BID 11/24 2100 AC 11/25 PO 2041 Furosemide 40 MG DIUB 11/24 1800 AC 11/26 IV 0511 Pantoprazole Sodium 40 MG DAILY@0600 11/24 0600 AC 11/26 Sesquihydrate PO 0511 Atorvastatin Calcium 20 MG QPM 11/23 1800 AC 11/25 PO 1757 Ascorbic Acid 1,000 MG DAILY 11/23 1500 AC 11/25 PO 0836 Zinc Sulfate 220 MG DAILY 11/23 1500 AC 11/25 PO 0836 Insulin Glargine 30 UNITS DAILY 11/23 0900 AC 11/25 SC 0836 Nicotine 21 MG DAILY 11/23 0900 AC 11/25 TOP 0836 Albuterol/Ipratropium 3 ML RTQ6H 11/23 0800 AC 11/26 IN 0738 Insulin Human Lispro See Dose ACHS 11/23 0730 AC 11/25 Insts (2) SC 2052 Nitroglycerin 1 GM Q6HR 11/23 0600 AC 11/26 TOP 0511 Metoprolol Tartrate See Dose Q3H PRN 11/23 0430 AC 11/23 Insts (3) IV 1217 Docusate Sodium 100 MG BID 11/23 0400 AC 11/25 PO 2041 Acetaminophen 650 MG Q4H PRN 11/23 0245 AC PO Albuterol Sulfate 2.5 MG Q3H PRN 11/23 0245 AC IN Atropine Sulfate 0.5 MG Q3MIN PRN 11/23 0245 AC IV Lidocaine HCl See Dose ONCE PRN 11/23 0245 AC Insts (4) IV Nitroglycerin 0.4 MG Q5M PRN 11/23 0245 AC SL Ondansetron HCl 4 MG Q6H PRN 11/23 0245 AC IV Dose Instructions: (1)Acetaminophen/Hydrocodone Bitart: 1 - 2 TABLETS (2)Insulin Human Lispro: LOW DOSE SLIDING SCALE (3)Metoprolol Tartrate: 2.5 - 5 MG (4)Lidocaine HCl: 1.5 MG/KG Allergies Coded Allergies: No Known Drug Allergy (06/09/16) Physical Exam Vital Signs / I&Os Vital Signs Date Time Temp Pulse Resp B/P Pulse O2 O2 Flow FiO2 Ox Delivery Rate 11/26 0644 98.2 11/26 0643 71 17 152/102 92 Room Air 0.0 11/26 0511 82 11/26 0215 98.4 103 11/26 0215 18 161/93 11/25 2220 94 11/25 2211 97.9 86 17 158/99 95 Room Air 11/25 1959 0.0 11/25 1823 90 20 94 11/25 1822 148/99 11/25 1441 97.9 97 20 145/105 95 Room Air 11/25 1401 96 11/25 1016 88 11/25 0918 108 20 154/107 95 Room Air 0.0 I&O 11/26 0000 11/25 1600 11/25 0800 Intake Total 812 635 7268 Output Total 2300 2600 1325 Balance -1356 -2080 222 General Appearance Alert, Oriented X3, Cooperative, No acute distress Lungs Scattered rhonchi. No significant wheezes. Cardiovascular Normal S1 and S2, irregular rhythm, rate controlled Abdomen Normal bowel sounds, Soft, No tenderness Extremities No cyanosis, No clubbing, Lower extremity edema slightly improved. Neurological Cranial nerves intact, No lateralizing signs Psych/Mental Status Mental status normal, Mood normal LAB Results Laboratory Tests 11/26 0633 Chemistry Plasma Sodium (136 - 145 mmol/L) 142 Plasma Potassium (3.5 - 5.1 mmol/L) 3.8 Plasma Chloride (98 - 107 mmol/L) 104 CO2 (Enzymatic) (21 - 32 mmol/L) 28 BUN (7 - 18 mg/dL) 25 Creatinine (0.6 - 1.3 mg/dL) 1.2 Est GFR ( Amer) (mL/min) >60 Est GFR (Non-Af Amer) (mL/min) >60 Glucose (70 - 110 mg/dL) 155 Plasma Calcium (8.5 - 10.1 mg/dL) 8.8 Total Bilirubin (0.0 - 1.0 mg/dL) 0.7 AST (15 - 37 U/L) 25 ALT (12 - 78 U/L) 34 Alkaline Phosphatase (46 - 116 U/L) 199 Total Protein (6.4 - 8.2 g/dL) 7.2 Albumin (3.3 - 5.0 g/dL) 3.1 Hematology WBC (4.5 - 11.5 K/uL) 7.6 RBC (4.50 - 5.90 M/uL) 4.56 Hgb (13.5 - 17.5 gm/dL) 12.4 Hct (41.0 - 53.0 %) 39.0 MCV (80 - 100 fL) 86 MCH (26 - 34 pg) 27 RDW (11.6 - 14.8 %) 18.2 Neut % (Auto) (50 - 75 %) 58.1 Lymph % (Auto) (25 - 40 %) 26.0 [place] % (Auto) (3 - 14 %) 12.1 Eos % (Auto) (0 - 4 %) 3.6 Baso % (Auto) (0 - 2 %) 0.2 Plt Count, EDTA (150 - 400 K/uL) 148 PUBS MCHC (31 - 37 g/dL) 32 Assessment and Plan Problem List 1. Atrial fibrillation Status Acute Onset Date 04/10/16 Plan -Rate control. -Continue present therapy. -Continue xarelto anticoagulation -Discharge to [facility] facility 2. Chronic anticoagulation Status Chronic Onset Date Unknown Plan -Xarelto -Follow up with PCP 3. CHF (congestive heart failure) Status Acute Onset Date Unknown Plan -Well-controlled -Continue present therapy -Low-salt diet -Discharge to [facility] facility Current status: Fair, improved Anticipated discharge date: Today Anticipated discharge placement: alf facility Patient care time: Time spent in chart review, patient interview, physical exam, CPOE, and care documentation: Greater than 30 minutes Visit to patient today: 2 Complexity of care: Moderate E&M Codes Discharge: Inpt >30 min spent/[id number] Anticipated discharge date: [discharge date] Anticipated discharge placement: [Home] Patient care time: Time spent in chart review, patient interview, physical exam, CPOE, and care documentation: [ ] minutes Visit to patient today: [ ] Complexity of care: [ ] E&M Codes Rounding: Inpt-Moderate/[id number]
[2016-11-26 10:38] VITALS: BP 160/100
[2016-11-26] MEDS ORDERED: CARVEDILOL12.5 MG PO (13:14)
[2016-11-26] MEDS ORDERED: IPRATROPIUM BROMIDE/ IN (13:14)
[2016-11-26] MEDS ORDERED: LANTUS SOL100 UNITS/ SC (13:14)
[2016-11-26] MEDS ORDERED: CEPHALEXIN500 MG PO (13:14)
[2016-11-26] MEDS ORDERED: ALBUTEROL2.5 MG/3 M IN (13:14)
[2016-11-26] MEDS ORDERED: HUMALOG KWI100 MG/ML SC (13:14)
[2016-11-26] MEDS ORDERED: ISOSORBIDE MONO30 MG PO (13:14)
[2016-11-26] MEDS ORDERED: XARELTO10 MG PO (13:14)
[2016-11-26] MEDS ORDERED: ALLOPURINOL100 M1 PO (13:14)
[2016-11-26] MEDS ORDERED: LOSARTAN POTASS25 MG PO (13:14)
[2016-11-26] MEDS ORDERED: SPIRONOLACTONE25 MG PO (13:14)
[2016-11-26] MEDS ORDERED: NICOTINE T21 MG/24 H TOP (13:14)
[2016-11-26] MEDS ORDERED: ATORVASTATIN CA20 MG PO (13:14)
--- NOTE | 2016-11-26 13:17 | Provider's Discharge Care Plan ---
Problem, Goal, Plan Problem List 1. Atrial fibrillation Goals: Improve disease control, Prevent disease progress Instructions: Follow up as directed, Take meds as directed 2. CHF (congestive heart failure) Goals: Improve disease control, Prevent disease progress Instructions: Follow up as directed, Take meds as directed, Avoid processed foods, LOW-SALT DIET. 3. Diabetes mellitus Goals: Improve disease control, Prevent disease progress Instructions: Follow up as directed, Take meds as directed, Avoid processed foods 4. Hypertension Goals: Improve disease control, Prevent disease progress Instructions: Follow up as directed, Take meds as directed 5. Nicotine dependence Goals: Improve disease control, Prevent disease progress Instructions: Follow up as directed, Take meds as directed, Stop smoking
[2016-11-26 14:52] VITALS: BP 150/98
--- NOTE | 2016-11-27 16:42 | Discharge Summary ---
Discharge Summary Report Admit Date 11/23/16 Discharge Date 11/26/16 Admission Diagnosis 1. Atrial fibrillation 2. Diabetes mellitus 3. CHF 4. Gout 5. Hypertension 6. Nicotine dependence-smoking 7. Hypercholesterolemia 8. Bilateral diabetic ulcers 9. Cellulitis bilateral-feet Discharge Diagnosis 1. Atrial fibrillation 2. Diabetes mellitus 3. CHF 4. Gout 5. Hypertension 6. Nicotine dependence-smoking 7. Hypercholesterolemia 8. Bilateral diabetic ulcers 9. Cellulitis bilateral-feet Brief History The patient is a 56-year-old white male with a significant past medical history of diabetes mellitus type 2, gout, osteoarthritis, hypertension, nicotine dependence-smoking, COPD, CHF, atrial fibrillation who presented to [facility] emergency department on the day of admission secondary to complaints of SOB and difficulty walking. [facility] ER evaluation was consistent with atrial fibrillation with rapid ventricular response, CHF, poorly controlled diabetes mellitus, bilateral foot ulcers. Secondary to the above, the patient was admitted by Jimmy Velez M.D. for further evaluation and treatment. For other history present illness, past medical history, family history, social history, review of systems, and admission physical examination please see the patient's history and physical examination and ER visit note in the patient's medical record. Hospital Course The following problems and their management were noted during the patient's hospitalization: 1. Atrial fibrillation The patient presented with findings of atrial fibrillation with rapid ventricular response. He was treated with Cardizem and beta blockers. At the time of discharge his heart rate was much better controlled with Coreg 25 mg by mouth twice a day. Patient transferred to [facility]. Follow-up with his PCP. 2. Diabetes mellitus The patient has a long-standing history of diabetes mellitus. Insulin requiring. Blood sugars adequately controlled at time of discharge. He was discharged on Lantus 30 units subcutaneous daily and Humalog sliding scale. Blood sugar check before meals and at bedtime. Follow-up with PCP. 3. CHF The patient has a long-standing history of CHF. He was treated with ARB in the form of losartan 50 mg by mouth twice a day, spironolactone 25 mg by mouth twice a day, Coreg 25 mg by mouth daily, and Lasix 80 mg by mouth daily. Symptoms were much improved at discharge. Outpatient follow up with PCP. Low-salt diet. Daily weights. 4. Gout The patient has a long-standing history of gout. He has multiple gouty tophi. His LP was increased to 200 mg by mouth daily. Outpatient follow-up with PCP. Recheck uric acid one month. 5. Hypertension The patient has a long-standing history of hypertension. His blood pressure was elevated but adequately controlled during his hospital stay. Treatment as noted above with Cozaar, Imdur, spironolactone, Lasix, and Coreg. Patient discharged to senior care facility. Low-salt diet. Adjustments in therapy per PCP. 6. Nicotine dependence-smoking -The patient has a history of nicotine dependence-smoking. He underwent smoking cessation education. NicoDerm patch 21 mg topically daily on discharge. Patient encouraged to follow a smoking abstinence program. 7. Hypercholesterolemia The patient has a history of hypercholesterolemia. He was continued on Lipitor 10 mg by mouth daily. Outpatient follow-up with PCP. Low-cholesterol/low-fat diet 8. Bilateral diabetic ulcers The patient had findings of bilateral diabetic foot ulcers in the setting of gouty tophi. Patient seen in consultation by podiatry. Please see Dr. Iraheta recommendations. Patient will follow-up with wound care clinic post hospitalization. 9. Cellulitis bilateral-feet The patient had findings of mild cellulitis lower extremities. Cultures showed MSSA and Klebsiella sensitive to Keflex. Patient discharged on Keflex 500 mg by mouth 3 times a day. Discharge Instructions/Meds For other recommendations regarding discharge diet, activity, followup, and discharge medications please see the patient's discharge instructions. Discharge condition: Fair, improved Greater than 30 min. was spent in the patient's discharge preparation including discharge interview and physical examination, progress note, discharge instructions, and discharge summary The patient was interviewed and examined on the day of discharge.
== END 2016-11-26 16:30 | DRG 292 ==
LOC: ED SRH 20:26 → CC SRH 11-23 01:36 → TRANS SRH 11-23 01:36 → CC SRH 11-23 06:28
PROVIDERS: ADMIT Internal Medicine
DX: I11.0 Hypertensive heart disease with heart failure (principal); I50.9 Heart failure, unspecified; I48.91 Unspecified atrial fibrillation; E11.621 Type 2 diabetes mellitus with foot ulcer; L97.421 Non-pressure chronic ulcer of left heel and midfoot limited to breakdown of skin; L97.411 Non-pressure chronic ulcer of right heel and midfoot limited to breakdown of skin; L03.116 Cellulitis of left lower limb; L03.115 Cellulitis of right lower limb; B95.61 Methicillin susceptible Staphylococcus aureus infection as the cause of diseases classified elsewhere; B96.1 Klebsiella pneumoniae [K. pneumoniae] as the cause of diseases classified elsewhere; E11.65 Type 2 diabetes mellitus with hyperglycemia; M1A.9XX1 Chronic gout, unspecified, with tophus (tophi); E78.00 Pure hypercholesterolemia, unspecified; F17.210 Nicotine dependence, cigarettes, uncomplicated; Z79.4 Long term (current) use of insulin

== ENCOUNTER → 2017-02-02 | Outpatient (CLI) | payer OTHER ==
[~2017-02-02] MED LIST changes: +ALBUTEROL2.5 MG/3 M IN; +ALLOPURINOL100 M1 PO; +ATORVASTATIN CA20 MG PO; +CARVEDILOL12.5 MG PO; +CEPHALEXIN500 MG PO; +HUMALOG KWI100 MG/ML SC; +IPRATROPIUM BROMIDE/ IN; +ISOSORBIDE MONO30 MG PO; +LOSARTAN POTASS25 MG PO; +NICOTINE T21 MG/24 H TOP; +SPIRONOLACTONE25 MG PO; +XARELTO10 MG PO
== END ==
LOC: RT SRH 12:00
DX: J44.9 Chronic obstructive pulmonary disease, unspecified (principal)